=== PATIENT | female | born 1955 | race Caucasian/White ===

== ENCOUNTER 2023-02-21 23:45 | Emergency (ER) | payer OTHER, SELFPAY ==
--- NOTE | 2023-02-21 23:45 | RT.EKG_ITS ---
APPROVED REPORT Exam: Resting ECG Reason for Exam: epigastric pain Patient Location: E HR:55 bpm ECG Measurements Heart Rate 55 AXIS WV 181 P 60 QRSd 111 QRS -39 QT 465 T 40 QTc 443 Conclusion Sinus bradycardia...rate< 60 Left ventricular hypertrophy...multiple LVH criteria ST elevation, consider inferior injury...ST >0.08mV, II III aVF sinus rhythm, left axis, poor baseline due to artifact
[2023-02-21 23:49] VITALS: BP 160/76; PULSE 74; RESP 16; TEMP 36.5; O2SAT 99
[2023-02-22] VITALS (36 sets, daily range): BP systolic 110–155; BP diastolic 54–90; PULSE 44–77; RESP 10–36
--- NOTE | 2023-02-22 | DI.CT_ITS ---
Exam(s) CT ABDOMEN PELVIS W EXAM: CT ABDOMEN PELVIS W CLINICAL HISTORY: severe abdominal pain, hx of colostomy. TECHNIQUE: Imaging Protocol: Axial computed tomography images with coronal and sagittal reformatted images were created and reviewed CONTRAST MATERIAL: Intravenous: Omnipaque 350 Contrast volume:100 ml Oral: / no COMPARISON: CT CT_CHEST WO/CONTRAST from 11/17/[address]_CHEST WO/CONTRAST from 06/19/2017 FINDINGS: ABDOMEN: Lung Bases: Scarring and atelectasis right lung base. Small hiatal hernia. Liver: Normal density. No measurable mass. Gallbladder and biliary tract: Status post cholecystectomy. No radiodense calculus or biliary dilati on. Pancreas: Normal density, no abnormal calcifications or inflammatory process. Spleen: Normal. Kidneys: Normal size, contour and axis. No radiodense stones or obstructive uropathy. No suspicious m asses seen. Adrenal glands: No masses seen. Abdominal Aorta: Abdominal portion non-dilated. Soft tissues: Unremarkable. PELVIS: Bladder: No gross wall thickening. No calculi.No focal mass. Bowel: Left-sided colostomy containing multiple loops of small bowel as well as the expected portion of the colon. The loops of small bowel show wall thickening. There is some fluid within the parasto mal hernia.. The portion of colon extending to the ostomy shows wall thickening and pneumatosis as w ell as a large quantity of stool. Diverticulosis is noted in the descending colon. No evidence of d iverticulitis. Large focal mass of stool in the rectum. Appendix normal. Peritoneal cavity: Multiple free air bubble seen in the right mid and lower quadrant, in the area of inflamed colon. Bones: Within normal limits for age. Reproductive organs: Status post hysterectomy. Lymph nodes: Unremarkable. Impression: Left-sided colostomy and parastomal hernia contain abnormally thickened loops of small bowel is sugge sting incarceration. Inflammation of the afferent portion of the colon entering the hernia with pneu matosis and adjacent pneumoperitoneum. Findings are suspicious for ischemia and necrosis. RADIATION DOSE DELIVERED: 1,411.89mGy.cm Total DLP DATA REPOSITORY: All CT scans at this facility are submitted to the National Radiology Data Registry (NRDR) Dose Index Registry (DIR) with the [employer] (ACR). RADIATION OPTIMIZATION: All CT scans at this facility use at least one of these dose optimization te chniques: automated exposure control; mA and/or kV adjustment per patient size (includes targeted exa ms where dose is matched to clinical indication); or iterative reconstruction.
--- NOTE | 2023-02-22 00:06 | ED.GENADUL_ITS ---
Discharge Plan Disposition Patient Disposition: Transfer-Acute Inpatient Care Specific Acute Inpt Facility: [facility] Condition: Stable Discharge Details Chief Complaint: Nausea/Vomit/Diar Clinical Impression: Hernia with strangulation, Pneumoperitoneum Primary Care Provider: Sunny Horne ED Provider: Franko Christina Home Meds and New Rx's Prescriptions: No Action isosorbide mononitrate 20 mg Tablet 40 mg PO .1400 AND HS isosorbide mononitrate 60 mg Tablet Extended Release 24 Hr 60 mg PO DAILY famotidine 20 mg Tablet 20 mg PO BID pantoprazole 40 mg Tablet,Delayed Release (Dr/Ec) 40 mg PO BID levothyroxine [Synthroid] 112 mcg Tablet 112 mcg PO DAILY Medical Decision Making 67-year-old female history of perforated bowel status post colostomy, presents with abdominal pain nausea and vomiting over the last day. Afebrile nontoxic however appears uncomfortable. Nondistended soft abdomen, colostomy in place with stool in bag. No active vomiting however holding emesis basin close by. Consider bowel obstruction versus enteritis versus colitis versus gastritis lower suspicion for appendicitis or cholecystitis. Will obtain basic labs CT imaging, analgesia antiemetics fluids close reassessment 2: 13 patient persistently uncomfortable. Evidence of strangulated stomal hernia with pneumatosis and adjacent pneumoperitoneum. Have started patient on Zosyn, will continue with analgesia and maintenance fluid. I discussed case with Dr. Hatfield of general surgery given likely extensive surgical intervention needed and Dr. Hatfield currently recovering from shoulder injury, we will call [facility] and [facility] to discuss transfer for surgical intervention. 3: [address] surgeon [address] Timmons at [facility] who would like patient transferred for intervention, patient will go ED to ED has been accepted by emergency physician Dr. Beth. Patient stable patient and family counseled and amenable to transfer HPI General Date/Time Provider Initiated Documentation: 02/21/23 23:46 . HPI Narrative: 67-year-old female history of perforated bowel likely related to diverticulitis in 2011 status post colostomy, presents with abdominal pain nausea vomiting over the last day harder stool output into her ostomy which is abnormal for her. Related Data Home Medications Medication Instructions Recorded Confirmed famotidine 20 mg tablet 20 mg PO BID 02/22/23 02/22/23 isosorbide mononitrate 20 mg tablet 40 mg PO .1400 AND HS 02/22/23 02/22/23 isosorbide mononitrate 60 mg 60 mg PO DAILY 02/22/23 02/22/23 tablet,extended release 24 hr levothyroxine 112 mcg tablet 112 mcg PO DAILY 02/22/23 02/22/23 (Synthroid) pantoprazole 40 mg tablet,delayed 40 mg PO BID 02/22/23 02/22/23 release Allergies Allergy/AdvReac Type Severity Reaction Status Date / Time acetaminophen [From Percocet] Allergy Unverified 02/21/23 23:56 hydromorphone [From Dilaudid] Allergy Unverified 02/21/23 23:56 latex Allergy Unverified 02/21/23 23:57 methotrexate Allergy Unverified 02/21/23 23:57 morphine Allergy Unverified 02/21/23 23:56 oxycodone [From Percocet] Allergy Unverified 02/21/23 23:56 General Stated Complaint: Nausea/Vomit/Diar SAMIR: 3 Review of Systems Narrative: Review of Systems Constitutional: negative Eyes: negative ENT: negative Cardiovascular: negative Respiratory: negative Gastrointestinal: Abdominal pain, nausea : negative Musculoskeletal: negative Skin: negative Neurologic: negative Psych: negative PFSH All Active Problems (Updated 02/22/23 @ 03:39 by Franko Christina MD) Hernia with strangulation (Acute) Pneumoperitoneum (Acute) Social History Smoking/Tobacco Use Status: Never Smoking risk assessment performed?: Yes Alcohol Intake: current Alcohol Intake frequency: holidays/special occasions only Substance use type: does not use Exam Narrative Exam Narrative: Physical Examination General: alert, awake, cooperative, uncomfortable appearing HEENT: normocephalic, atraumatic; PERRL, EOM intact, conjunctiva normal; no nasal discharge; moist mucous membranes, oral and pharyngeal mucosa normal, tolerating secretions Neck: supple, trachea midline; full ROM Chest: normal to inspection Respiratory: normal respiratory effort, speaking in full sentences, clear to auscultation, no wheezing, rales or rhonchi Cardiac: regular rate, regular rhythm, S1S2 intact, no murmurs rubs or gallops GI: abdomen soft, non-tender, non-distended; no palpable mass or hepatosplenomegaly; colostomy in place with stool in bag Skin: no lesions, rashes or trauma appreciated Neuro: AAOx3, normal speech, moving all extremities Psych: Appropriate mood and affect Course Vital Signs Vital signs: Vital Signs Temperature 36.5 C 02/21/23 23:49 Pulse 74 02/21/23 23:49 Respiratory Rate 16 02/21/23 23:49 Blood Pressure 160/76 H 02/21/23 23:49 Pulse Oximetry 99 02/21/23 23:49 Temperature 36.5 C 02/21/23 23:49 Temperature Source Temporal Artery Scan 02/21/23 23:49 Pulse 74 02/21/23 23:49 Respiratory Rate 16 02/21/23 23:49 Respiratory Effort Normal 02/21/23 23:49 Blood Pressure 160/76 H 02/21/23 23:49 Blood Pressure Position Supine 02/21/23 23:49 Pulse Oximetry 99 02/21/23 23:49 Oxygen Delivery Method Room Air 02/21/23 23:49 Oxygen Flow Rate 0 02/21/23 23:49 Pain Level 10 02/21/23 23:49
[2023-02-22] MEDS: fentaNYL 100 MCG/2 ML VIAL 50 MCG IVP ×4 (00:10→04:06)
[2023-02-22] MEDS: Normal Saline 1,000 ML 1000 ML IV (00:10)
[2023-02-22 00:15] LABS: Abs Immature Grans 0.03 10^3/uL (0.0-0.06); Absolute Basophil Count 0.07 10^3/uL (0.0-0.2); Absolute Eosinophil Count 0.18 10^3/uL (0.0-0.7); Absolute Monocyte Count 0.63 10^3/uL (0.1-0.8); Basophils % 0.7; Eosinophils % 1.7; HCT 39.6 % (36.0-46.0); HGB 13.4 g/dL (11.2-15.7); Immature Grans % 0.3; Lymphocytes % 29.2; MCHC 33.8 % (32.0-36.0); MCV 89 fL (80-95); MPV 9.4 fL (8.0-11.0); Monocytes % 5.9; Neutrophils % 62.2; Platelet Count 325 10^3/uL (130-400); RBC 4.47 10^6/uL (3.93-5.22); RDW 12.2 % (11.7-14.6); RDW-SD 39.8 fL; WBC 10.61 10^3/uL (4.4-10.8)
[2023-02-22] MEDS: Metoclopramide 10 MG/2 ML VIAL IVP (00:15)
[2023-02-22] MEDS: Simethicone 80 MG CHEW 40 MG PO (00:25)
[2023-02-22 00:34] LABS: ALT 24 U/L (14-59); AST 20 U/L (15-37); Albumin 4.3 g/dL (3.4-5.0); Alkaline Phosphatase 125 U/L (46-116); BUN 25 mg/dL (7-18); Bilirubin, Total 1.1 mg/dL (0.2-1.0); Calcium 10.7 mg/dL (8.5-10.1); Chloride 103 mmol/L (98-107); Estimated GFR 62.52 (mL/min/1.73m2); Glucose 124 mg/dL (74-106); Potassium 3.2 mmol/L (3.5-5.1); Sodium 140 mmol/L (136-145); Total Protein 8.2 g/dL (6.4-8.2)
[2023-02-22] MEDS: Normal Saline - Diluent 50 ML VIAL IJ (00:56)
[2023-02-22] MEDS: Omnipaque 350 MG/ML 100 ML BTL IJ (00:56)
[2023-02-22 01:28] LABS: Bilirubin Negative (Negative); Blood Negative (Negative); Clarity Clear (Clear); Glucose Negative (Negative); Ketones 15 mg/dL (Negative); Leukocyte Esterase Negative (Negative); Nitrite Negative (Negative); Specific Gravity 1.015 (1.005-1.025); Urobilinogen 0.2 mg/dL (Up to 0.2); pH 5.5 (5-8)
--- NOTE | 2023-02-22 01:50 | DI.VRAD_ITS ---
Addendum created by Ervin Burns MD on 02/22/2023 2:13:29 AM EDT: THIS REPORT CONTAINS FINDINGS THAT MAY BE CRITICAL TO PATIENT CARE. The findings were verbally communicated via telephone conference with Franko Christina at 2:13 AM EDT on 02/22/2023. The findings were acknowledged and understood. Initial report created on 02/22/2023 1:50:08 AM EDT: PROCEDURE INFORMATION: Exam: CT Abdomen And Pelvis With Contrast Exam date and time: 02/22/2023 12:49 AM Age: 67 years old Clinical indication: Abdominal pain; Localized; Lower; Prior surgery; Surgery date: 6+ months; Surgery type: H/o colostomy. PT states many surgeries for diverticulitis; Additional info: Severe abdominal pain, HX of colostomy TECHNIQUE: Imaging protocol: Computed tomography of the abdomen and pelvis with contrast. Radiation optimization: All CT scans at this facility use at least one of these dose optimization techniques: automated exposure control; mA and/or kV adjustment per patient size (includes targeted exams where dose is matched to clinical indication); or iterative reconstruction. Contrast material: JERMAINE 350; Contrast volume: 100 ml; Contrast route: INTRAVENOUS (IV); COMPARISON: CT CHEST WO/CONTRAST 06/19/2017 4:46 PM FINDINGS: Lungs: Stable mild scarring and mild subsegmental atelectasis noted in the right lung base. Diaphragm: There is a small hiatal hernia. Liver: Normal. No mass. Gallbladder and bile ducts: Gallbladder is surgically absent. Pancreas: Normal. No ductal dilation. Spleen: Normal. No splenomegaly. Adrenal glands: Normal. No mass. Kidneys and ureters: Normal. No hydronephrosis. Stomach and bowel: There is a left lower quadrant colostomy with moderately large stomal hernia containing several thick-walled small bowel loops and small amount of fluid. The involved loop of colon exhibits pneumatosis as well as mild surrounding free air. Moderate-sized (5.6 cm) fecal mass noted in the rectum. Moderate fecal retention noted throughout the proximal colon. Appendix: No evidence of appendicitis. Intraperitoneal space: There is mild pneumoperitoneum in the left lower quadrant and pelvis. No significant free fluid or loculated fluid collections. Vasculature: Moderate atherosclerotic calcification noted in the aorta and iliac arteries. Lymph nodes: Unremarkable. No enlarged lymph nodes. Urinary bladder: Unremarkable as visualized. Reproductive: Uterus appears to be surgically absent. No adnexal abnormality. Bones/joints: Significant degenerative changes noted in the lumbosacral spine. Soft tissues: Unremarkable. IMPRESSION: Moderately large left lower quadrant stomal hernia containing several thick-walled small bowel loops and a small amount of fluid raising concern for incarcerated bowel. In addition, adjacent loop colon exhibits pneumatosis and small amount of adjacent pneumoperitoneum raising concern for bowel ischemia/necrosis secondary to incarceration. Dictated and Authenticated by: Ervin Burns MD. Ordering:SABINE Abdul MD
[2023-02-22] MEDS: Normal Saline 1,000 ML 125 ML IV (02:10)
[2023-02-22] MEDS: PIPERACILLIN/TAZO 4.5 GM in Normal Saline 100 ML IVPB (02:10)
[2023-02-22 02:24] LABS: Lactate 1.1 mmol/L (0.6-1.4)
--- NOTE | 2023-02-22 02:53 | NUR.NOTE ---
Nursing Note:Initil vial of Fentanyl that was pulled out by TIMUR OBANDO was used as a double dose vial. Second Vial drawn out. Currently one dose has been given from vial. Will waste if another dose isnt given from the same vial.
== END 2023-02-22 04:08 | disposition short-term general hospital (02) ==
PROVIDERS: Emergency Provider Emergency Medicine; PCP Internal Medicine
DX: K46.0 Unspecified abdominal hernia with obstruction, without gangrene (principal); K66.8 Other specified disorders of peritoneum; Z93.3 Colostomy status
CPT/HCPCS: 36415; 80053; 93005; 96361; 96365; 96375; 96376; 99285; 74177; 81003; 83605; 85025; 93010; J2543; J2765; J3010; J3490

== ENCOUNTER 2023-04-05 09:46 | Emergency (ER) | payer OTHER, SELFPAY ==
[2023-04-05] VITALS (32 sets, daily range): BP systolic 129–175; BP diastolic 76–105; PULSE 63–79; RESP 15; TEMP 36.6; O2SAT 86–99
--- NOTE | 2023-04-05 10:15 | RT.EKG_ITS ---
APPROVED REPORT This report is currently processing and has not been officially signed by CARLOS FERRARO.. [facility] TIME OF PERMANENT APPROVAL IS 04/20/2023 16:18 Exam: Resting ECG Reason for Exam: dizziness Patient Location: E HR:67 bpm ECG Measurements Heart Rate 67 AXIS OK 152 P 21 QRSd 103 QRS -37 QT 427 T 40 QTc 450 Conclusion Sinus rhythm...normal P axis, V-rate 60- 99 Left ventricular hypertrophy...multiple LVH criteria
[2023-04-05 10:39] LABS: Abs Immature Grans 0.01 10^3/uL (0.0-0.06); Absolute Basophil Count 0.04 10^3/uL (0.0-0.2); Absolute Lymphocyte Count 1.94 10^3/uL (1.2-3.4); Absolute Neutrophil Count 1.63 10^3/uL (1.2-6.7); Basophils % 0.9; Eosinophils % 4.7; HCT 37.7 % (36.0-46.0); HGB 12.1 g/dL (11.2-15.7); Immature Grans % 0.2; MCH 30.3 pg (27.0-33.0); MCHC 32.1 % (32.0-36.0); MCV 95 fL (80-95); MPV 9.1 fL (8.0-11.0); Monocytes % 9.5; Neutrophils % 38.7; Platelet Count 304 10^3/uL (130-400); RBC 3.99 10^6/uL (3.93-5.22); RDW 14.1 % (11.7-14.6); RDW-SD 49.1 fL; WBC 4.22 10^3/uL (4.4-10.8)
[2023-04-05] MEDS: diazePAM 10 MG/2 ML SYR 2.5 MG IVP (10:44)
[2023-04-05] MEDS: Lactated Ringers 1,000 ML 1000 ML IV (10:45)
[2023-04-05 10:54] LABS: Magnesium 1.9 mg/dL (1.8-2.4)
[2023-04-05 11:01] LABS: ALT 23 U/L (14-59); AST 18 U/L (15-37); Albumin 4.1 g/dL (3.4-5.0); Alkaline Phosphatase 142 U/L (46-116); Anion Gap 11.2 mmol/L (3-11); BUN 14 mg/dL (7-18); Bilirubin, Total 0.9 mg/dL (0.2-1.0); CO2 25.8 mmol/L (21.0-32.0); CREATININE 0.9 mg/dL (0.55-1.02); Calcium 9.6 mg/dL (8.5-10.1); Chloride 105 mmol/L (98-107); Estimated GFR 70.95 (mL/min/1.73m2); Glucose 111 mg/dL (74-106); Potassium 3.6 mmol/L (3.5-5.1); Sodium 142 mmol/L (136-145); Total Protein 8.6 g/dL (6.4-8.2); Troponin I < 50 ng/L (<or=60)
[2023-04-05] MEDS: Normal Saline - Diluent 50 ML VIAL IJ (11:23)
[2023-04-05] MEDS: Normal Saline Flush 10 ML SYR IVP (11:26)
[2023-04-05] MEDS: Omnipaque 350 MG/ML 500 ML BTL-Imaging package IJ (11:27)
--- NOTE | 2023-04-05 11:46 | DI.CT_ITS ---
Exam(s) CT BRAIN NECK CTA EXAM: CT BRAIN NECK CTA CLINICAL HISTORY: dilated pupil left, dizziness, headache. TECHNIQUE: Imaging Protocol: Axial CT angiography was performed with multi-slice acquisition and mu lti-planar and/or 3D reconstructions. CONTRAST MATERIAL: Intravenous: Omnipaque 350 Contrast volume:structured data in ml COMPARISON: CT CT ABDOMEN PELVIS W from 02/22/2023 FINDINGS: CTA Neck W: Aortic arch anatomy: The aortic arch anatomy is conventional and there is no significant stenosis at the origin of the great vessels off of the aortic arch. No intimal flap evident. Anterior circulation: Both common carotid arteries ascend with normal luminal diameters. At the level the carotid bulbs there is mild calcified and noncalcified plaque on the right side note d but without significant stenosis on the right side. Lesser amount of plaque noted on the left side , also without significant stenosis. The internal carotid arteries above this level are patent in th e upper neck and skull base. Posterior circulation: Both vertebral arteries originate in conventional fashion off of the subclavian arteries and there is no obvious stenosis at the origin of the vertebral arteries. Both vertebral arteries exhibit normal luminal diameters within the foramen transversarium. Both vertebral arteries contribute to the formation of the basilar artery at the skull base. CTA Brain W: Anterior circulation: Both internal carotid arteries are patent in the skull base-carotid canals as well as within the cave rnous sinuses. The supraclinoid aspects of the ICAs are patent. Both A1 segments are patent as are the anterior cer ebral arteries and there is no evidence of aneurysm at the level of the anterior communicating artery . Both middle cerebral arteries are patent with no evidence of significant stenosis nor intraluminal th rombus. There also no aneurysms of these vessels. Posterior circulation: The basilar artery ascends in the midline. Distally it gives off patent bilateral superior cerebella r arteries. Above this level the basilar artery terminates as patent bilateral posterior cerebral arteries. There is no evidence of aneurysm at the tip of the basilar artery nor elsewhere in the [id number] is. CT BRAIN: There is no evidence of intracranial hemorrhage, mass effect, or shift of midline structures. There are no extra-axial fluid collections. Ventricles are not enlarged or shifted. There are no ring enh ancing lesions in the brain and no abnormal meningeal enhancement. IMPRESSION: 1. Patent carotid arteries in the neck. Only mild plaque but no hemodynamically significant stenosis at the carotid bifurcations and proximal ICAs in the neck.. 2. Patent vertebral arteries. No evidence of intraluminal thrombus nor dissection. 3. Patent intracranial arteries. 4. No ring enhancing lesions in the brain is is no abnormal meningeal enhancement. No evidence of in tracranial hemorrhage. 5. If clinically indicated follow-up MRI can be performed. Called by myself to ER provider. RADIATION DOSE DELIVERED: 2,062.71mGy.cm Total DLP DATA REPOSITORY: All CT scans at this facility are submitted to the National Radiology Data Registry (NRDR) Dose Index Registry (DIR) with the [employer] (ACR). RADIATION OPTIMIZATION: All CT scans at this facility use at least one of these dose optimization te chniques: automated exposure control; mA and/or kV adjustment per patient size (includes targeted exa ms where dose is matched to clinical indication); or iterative reconstruction.
--- NOTE | 2023-04-05 12:00 | DI.MRI_ITS ---
Exam(s) MR BRAIN WO EXAM: MR BRAIN WO CLINICAL HISTORY: dizziness, vision change TECHNIQUE: Multiplanar multisequence MRI of the brain was performed. COMPARISON: CT CT BRAIN NECK CTA from 04/05/2023 FINDINGS: CEREBRAL PARENCHYMA: There is no evidence of intracranial hemorrhage, mass effect, or shift of midline structures. There are no extra-axial fluid collections. Ventricles are not enlarged or shifted. There is no significant focal signal abnormality in the cerebellar hemispheres nor within the talha, m idbrain, and thalami. There is some patchy bilateral periventricular FLAIR bright signal abnormality consistent with chroni c small vessel ischemic changes. No associated hemorrhage or surrounding edema nor restricted diffus ion. There is no significant focal signal abnormality evident on diffusion imaging to suggest acute ischem ic event. PITUITARY GLAND: No mass nor parasellar abnormality. No obvious abnormality in the cavernous sinuses. FLOW VOIDS: The expected flow void are noted. No evidence of obvious aneurysm nor obvious vascular ma lformation. PARANASAL SINUSES: The visualized paranasal sinuses appear unremarkable. No obvious finding ORBITS: No obvious findings. IMPRESSION: There is bilateral periventricular patchy signal abnormality consistent with probable chronic small v essel disease. No associated hemorrhage or surrounding edema and no restricted diffusion to suggest acute ischemic event. DATA REPOSITORY:
[2023-04-05] MEDS: Meclizine 25 MG TAB PO ×2 (13:14→16:41)
[2023-04-05 14:20] LABS: Bilirubin Negative (Negative); Blood Negative (Negative); Clarity Clear (Clear); Glucose Negative (Negative); Ketones Negative (Negative); Leukocyte Esterase Negative (Negative); Nitrite Negative (Negative); Specific Gravity 1.015 (1.005-1.025)
--- NOTE | 2023-04-05 14:31 | ED.GENADUL_ITS ---
Discharge Plan Disposition Patient Disposition: Home Discharge Details Clinical Impression: Dizziness, Anisocoria Primary Care Provider: Snuny Horne ED Provider: Effie Still Home Meds and New Rx's Prescriptions: New meclizine 25 mg tablet 25 mg PO DAILY PRNQty: 10 0RF Continued aspirin 325 mg Tablet 325 mg PO DAILY isosorbide mononitrate 20 mg Tablet 40 mg PO .1400 AND HS isosorbide mononitrate 60 mg Tablet Extended Release 24 Hr 60 mg PO DAILY famotidine 20 mg Tablet 20 mg PO BID pantoprazole 40 mg Tablet,Delayed Release (Dr/Ec) 40 mg PO BID levothyroxine [Synthroid] 112 mcg Tablet 112 mcg PO DAILY Discharge Instructions Instructions: Dizziness (ED) Additional Instructions: Take meclizine as needed for dizziness, please follow-up with [facility] in [facility] for evaluation of your vision utube rene maneuver as this may help with your dizziness Keep your self hydrated Return earlier should you have new or worsening complaints Please follow-up with your primary care physician Referrals: Sunny Horne [Primary Care Provider] - Discharge Data Discharge Date/Time-TO BE ENTERED AT DEPARTURE: 04/05/23 16:51 Medical Decision Making 67-year-old female presents with suspected BPPV CTA head and neck was ordered and negative for acute abnormality MRI does not show evidence of acute abnormality per radiology interpretation and my review Case was discussed with Dr. Damon, radiologist Diagnostic labs do not show significant acute abnormality, specifically 2 negative troponins and negative EKG for acute abnormality Patient feels marked improvement after meclizine, Valium did not offer much assistance with her symptoms At this time her exam is reassuring, she does have anisocoria, she states that she noticed this today but her pupils are reactive and her pupils are intraocular pressure is 21 in the affected eye and 22 in the unaffected eye, I suspect this is her baseline, she is not complaining intermittent complaints Her visual acuity is 20/25 in the right eye, 20/25 in the left eye, and 2024 bilaterally She will be referred to [facility] for outpatient assessment She is given meclizine for home Return precautions were reviewed and patient expressed understanding, her neurological exam is otherwise nonfocal Medical Records Medical records reviewed: Yes I reviewed the patient's medical records. Lab Data Lab results reviewed: Yes I reviewed the patient's lab results. HPI General Date/Time Provider Initiated Documentation: 04/05/23 09:58 . HPI Narrative: This 67-year-old female presents with dizziness with, she describes it as spinning sensation with headache. Denies any chest pain or shortness of breath. Denies any weakness. States she had similar symptoms in the past with a neuro and quite so persistent. Status post colostomy placement. Denies any strength or sensation change. States her pupils looked abnormal when she examined herself in the mirror today, has not noticed this before. Her visual acuity was what was consistent on all on the chart. Related Data Home Medications Medication Instructions Recorded Confirmed famotidine 20 mg tablet 20 mg PO BID 02/22/23 04/05/23 isosorbide mononitrate 20 mg tablet 40 mg PO .1400 AND HS 02/22/23 04/05/23 isosorbide mononitrate 60 mg 60 mg PO DAILY 02/22/23 04/05/23 tablet,extended release 24 hr levothyroxine 112 mcg tablet 112 mcg PO DAILY 02/22/23 04/05/23 (Synthroid) pantoprazole 40 mg tablet,delayed 40 mg PO BID 02/22/23 04/05/23 release aspirin 325 mg tablet 325 mg PO DAILY 04/05/23 04/05/23 meclizine 25 mg tablet 25 mg PO DAILY PRN #10 tabs 04/05/23 Previous Rx's Medication Instructions Recorded meclizine 25 mg tablet 25 mg PO DAILY PRN #10 tabs 04/05/23 Allergies Allergy/AdvReac Type Severity Reaction Status Date / Time acetaminophen [From Percocet] Allergy Unverified 04/05/23 09:58 hydromorphone [From Dilaudid] Allergy Unverified 04/05/23 09:58 latex Allergy Unverified 04/05/23 09:58 methotrexate Allergy Unverified 04/05/23 09:58 morphine Allergy Unverified 04/05/23 09:58 oxycodone [From Percocet] Allergy Unverified 04/05/23 09:58 General Stated Complaint: GenMedical SAMIR: 3 PFSH All Active Problems (Updated 04/05/23 @ 15:17 by MELANIE Negron) Dizziness (Acute) Anisocoria (Acute) Social History Smoking/Tobacco Use Status: Never Smoking risk assessment performed?: Yes Alcohol Intake: current Alcohol Intake frequency: holidays/special occasions only Drug use: Never Substance use type: does not use Do you feel safe at home: Yes Do you feel safe in your relationship?: Yes Exam Const General: cooperative, comfortable, no acute distress and well developed Orientation: alert and oriented x3 HENMT Head: normal to inspection Other: Uvula midline Eyes Pupils: PERRL EOM: nystagmus Other: Anisocoria noted, left pupil approximately 2 mm larger than right, extraocular muscles intact, pupils reactive to light Resp Effort & Inspection: normal respiratory effort Cardio Rate: regular rate Rhythm: regular rhythm GI Inspection: normal to inspection Neuro General: patient alert and patient oriented x3 Cranial Nerves: CN's II-XI intact bilaterally, tongue midline and nystagmus Cognition: normal cognition Speech: speech normal Other: Right beating horizontal nystagmus Negative [id number]-ryqa-[id number], negative heel sandoval, negative pronator drift Ambulatory with steady gait Course Vital Signs Vital signs: Vital Signs Temperature 36.6 C 04/05/23 09:53 Pulse 78 04/05/23 09:53 Respiratory Rate 15 04/05/23 09:53 Blood Pressure 175/91 H 04/05/23 09:53 Pulse Oximetry 98 04/05/23 09:53 Temperature 36.6 C 04/05/23 09:53 Temperature Source Oral 04/05/23 09:53 Pulse 68 04/05/23 13:46 Respiratory Rate 15 04/05/23 10:36 Respiratory Effort Normal, Non-Labored 04/05/23 10:36 Respiratory Depth Normal 04/05/23 10:36 Respiratory Pattern Normal 04/05/23 10:36 Blood Pressure 133/81 04/05/23 13:46 Blood Pressure Mean 94 04/05/23 13:46 Blood Pressure Position Sitting 04/05/23 09:53 Pulse Oximetry 98 04/05/23 13:46 Oxygen Delivery Method Room Air 04/05/23 09:53 Oxygen Flow Rate 0 04/05/23 09:53 Pain Level 0 04/05/23 09:53 Lab/Test Results Lab/Test Results: Laboratory Tests Range/Units 04/05/23 04/05/23 04/05/23 10:30 10:30 10:30 WBC (4.4-10.8) 10^3/uL 4.22 L RBC (3.93-5.22) 10^6/uL 3.99 Hgb (11.2-15.7) g/dL 12.1 Hct (36.0-46.0) % 37.7 MCV (80-95) fL 95 MCH (27.0-33.0) pg 30.3 MCHC (32.0-36.0) % 32.1 RDW (11.7-14.6) % 14.1 Plt Count (130-400) 10^3/uL 304 MPV (8.0-11.0) fL 9.1 Immature Gran % 0.2 Neutrophils % 38.7 Lymphocytes % 46.0 Monocytes % 9.5 Eosinophils % 4.7 Basophils % 0.9 Nucleated RBC % (0.0-0.3) % 0.0 Absolute Neutrophils (1.2-6.7) 10^3/uL 1.63 Absolute Lymphocytes (1.2-3.4) 10^3/uL 1.94 Absolute Monocytes (0.1-0.8) 10^3/uL 0.40 Absolute Eosinophils (0.0-0.7) 10^3/uL 0.20 Absolute Basophils (0.0-0.2) 10^3/uL 0.04 Sodium (136-145) mmol/L 142 Potassium (3.5-5.1) mmol/L 3.6 Chloride (98-107) mmol/L 105 Carbon Dioxide (21.0-32.0) mmol/L 25.8 Anion Gap (3-11) mmol/L 11.2 H BUN (7-18) mg/dL 14 Creatinine (0.55-1.02) mg/dL 0.9 Est GFR (CKD-EPI 2020) (mL/min/1.73m2) 70.95 Glucose (74-106) mg/dL 111 H Calcium (8.5-10.1) mg/dL 9.6 Magnesium (1.8-2.4) mg/dL 1.9 Total Bilirubin (0.2-1.0) mg/dL 0.9 AST (15-37) U/L 18 ALT (14-59) U/L 23 Alkaline Phosphatase (46-116) U/L 142 H Troponin I (<or=60) ng/L < 50 Total Protein (6.4-8.2) g/dL 8.6 H Albumin (3.4-5.0) g/dL 4.1 Urine Color (Yellow) Urine Clarity (Clear) Urine pH (5-8) Ur Specific [place] (1.005-1.025) Urine Protein (Negative) mg/dL Urine Ketones (Negative) mg/dL Urine Blood (Negative) Urine Nitrite (Negative) Urine Bilirubin (Negative) Urine Urobilinogen (Up to 0.2) mg/dL Ur Leukocyte Esterase (Negative) Urine Glucose (Negative) mg/dL Range/Units 04/05/23 14:15 WBC (4.4-10.8) 10^3/uL RBC (3.93-5.22) 10^6/uL Hgb (11.2-15.7) g/dL Hct (36.0-46.0) % MCV (80-95) fL MCH (27.0-33.0) pg MCHC (32.0-36.0) % RDW (11.7-14.6) % Plt Count (130-400) 10^3/uL MPV (8.0-11.0) fL Immature Gran % Neutrophils % Lymphocytes % Monocytes % Eosinophils % Basophils % Nucleated RBC % (0.0-0.3) % Absolute Neutrophils (1.2-6.7) 10^3/uL Absolute Lymphocytes (1.2-3.4) 10^3/uL Absolute Monocytes (0.1-0.8) 10^3/uL Absolute Eosinophils (0.0-0.7) 10^3/uL Absolute Basophils (0.0-0.2) 10^3/uL Sodium (136-145) mmol/L Potassium (3.5-5.1) mmol/L Chloride (98-107) mmol/L Carbon Dioxide (21.0-32.0) mmol/L Anion Gap (3-11) mmol/L BUN (7-18) mg/dL Creatinine (0.55-1.02) mg/dL Est GFR (CKD-EPI 2020) (mL/min/1.73m2) Glucose (74-106) mg/dL Calcium (8.5-10.1) mg/dL Magnesium (1.8-2.4) mg/dL Total Bilirubin (0.2-1.0) mg/dL AST (15-37) U/L ALT (14-59) U/L Alkaline Phosphatase (46-116) U/L Troponin I (<or=60) ng/L Total Protein (6.4-8.2) g/dL Albumin (3.4-5.0) g/dL Urine Color (Yellow) Yellow Urine Clarity (Clear) Clear Urine pH (5-8) 7.0 Ur Specific [place] (1.005-1.025) 1.015 Urine Protein (Negative) mg/dL Negative Urine Ketones (Negative) mg/dL Negative Urine Blood (Negative) Negative Urine Nitrite (Negative) Negative Urine Bilirubin (Negative) Negative Urine Urobilinogen (Up to 0.2) mg/dL 1.0 H Ur Leukocyte Esterase (Negative) Negative Urine Glucose (Negative) mg/dL Negative
[2023-04-05 14:40] LABS: Troponin I < 50 ng/L (<or=60)
--- NOTE | 2023-04-05 15:15 | NUR.NOTE ---
Nursing Note: PT needs opthimology follow up Saturday. Susana, ED
== END 2023-04-05 16:51 | disposition home or self-care (01) ==
PROVIDERS: Emergency Provider Physician Assistant; PCP Internal Medicine
DX: R42 Dizziness and giddiness (principal); H57.02 Anisocoria
CPT/HCPCS: 36415; 70496; 70498; 80053; 93005; 96361; 96374; 99285; 70551; 81003; 83735; 84484; 85025; 93010; 99284; J3360

== ENCOUNTER 2023-05-08 02:17 | Outpatient (CLI) | payer OTHER, SELFPAY ==
--- NOTE | 2023-05-08 13:00 | DI.MAMMO_ITS ---
Exam(s) MAMMO SCREENING EXAM: MAMMO SCREENING CLINICAL HISTORY: SCREENING TECHNIQUE: Bilateral full field digital CC and MLO mammographic images were obtained with 3D tomosyn thesis and utilizing computer aided detection (CAD). COMPARISON: Available for comparison. FINDINGS: Masses/Architectural Distortion: None seen. Microcalcifications: No suspicious pleomorphic-type are seen. Skin Thickening/Nipple Retraction: None. IMPRESSION: 1. No significant interval change with no specific features of malignancy noted. 2. Unless there is more urgent need, screening mammography is recommended, as per [employer] [place] guidelines. BI-RADS Category 1 - Negative Breast Density - Category B - Scattered areas of fibroglandular density Breast density category C or D implies that the patient has dense breast tissue. Dense breast tissue is very common and is not abnormal but dense breast tissue can make it harder to find cancer on a ma mmogram. Also, dense breast tissue may increase their breast cancer risk. This information about the result of the mammogram report was provided to the patient to raise their awareness. Use this report when you speak with the patient about their risks for breast cancer, which includes their family hist ory. At that time, you may recommend for more screening tests (Ultrasound or MRI) as they might be us eful based on their risk. A negative radiographic report should not delay biopsy if a dominant or clinically suspicious mass is present. Up to ten percent of cancers are not identified on mammography. A negative report may reinforce clinical impression. Adenosis and dense breasts may obscure an underlying neoplasm. False positive reports average 6 to 10%. Patient will receive a letter notifying them of these results.
== END 2023-05-08 02:37 ==
LOC: DI 02:17
PROVIDERS: PCP Internal Medicine; Visit Provider Internal Medicine
DX: Z12.31 Encounter for screening mammogram for malignant neoplasm of breast (principal)
CPT/HCPCS: 77063; 77067

== ENCOUNTER 2023-05-17 01:51 | Outpatient (CLI) | payer OTHER, SELFPAY ==
[2023-05-17 08:05] LABS: ESR 20 mm/hr (0-30)
[2023-05-17 08:06] LABS: Abs Immature Grans 0.02 10^3/uL (0.0-0.06); Absolute Basophil Count 0.05 10^3/uL (0.0-0.2); Absolute Eosinophil Count 0.23 10^3/uL (0.0-0.7); Absolute Lymphocyte Count 2.99 10^3/uL (1.2-3.4); Absolute Monocyte Count 0.68 10^3/uL (0.1-0.8); Absolute Neutrophil Count 3.38 10^3/uL (1.2-6.7); Basophils % 0.7; Eosinophils % 3.1; HCT 39.5 % (36.0-46.0); Immature Grans % 0.3; Lymphocytes % 40.7; MCHC 32.9 % (32.0-36.0); MCV 91 fL (80-95); Monocytes % 9.3; Neutrophils % 45.9; Platelet Count 318 10^3/uL (130-400); RBC 4.34 10^6/uL (3.93-5.22); RDW 12.6 % (11.7-14.6); RDW-SD 41.8 fL; WBC 7.35 10^3/uL (4.4-10.8)
[2023-05-17 08:41] LABS: Hemoglobin A1C 5.9 % (<5.7)
[2023-05-17 09:09] LABS: ALT 22 U/L (14-59); AST 19 U/L (15-37); Albumin 4.1 g/dL (3.4-5.0); Alkaline Phosphatase 116 U/L (46-116); Anion Gap 12.3 mmol/L (3-11); BUN 37 mg/dL (7-18); Bilirubin, Total 0.8 mg/dL (0.2-1.0); CO2 26.7 mmol/L (21.0-32.0); CREATININE 1.1 mg/dL (0.55-1.02); Calcium 10.8 mg/dL (8.5-10.1); Calculated LDL 69 mg/dL (<100); Chloride 103 mmol/L (98-107); Cholesterol 167 mg/dL (<200); Estimated GFR 55.76 (mL/min/1.73m2); Glucose 113 mg/dL (74-106); HDL Cholesterol 66 mg/dL (40-60); Potassium 3.4 mmol/L (3.5-5.1); Sodium 142 mmol/L (136-145); TSH (W/Ref FT4) 0.47 uIU/mL (0.36-3.74); Total Protein 8.3 g/dL (6.4-8.2); Triglyceride 163 mg/dL (<150)
[2023-05-17 09:18] LABS: C-Reactive Protein 0.09 mg/dL (0.0-0.3)
== END 2023-05-17 01:52 | disposition home or self-care (01) ==
LOC: LBO 01:51
PROVIDERS: PCP Internal Medicine; Visit Provider Internal Medicine Rheumatology
DX: M34.81 Systemic sclerosis with lung involvement (principal); E06.3 Autoimmune thyroiditis; R73.03 Prediabetes; E78.5 Hyperlipidemia, unspecified
CPT/HCPCS: 36415; 80053; 80061; 85652; 83036; 84443; 85025; 86140

== ENCOUNTER 2024-03-11 05:50 | Outpatient (CLI) | payer OTHER, SELFPAY ==
--- NOTE | 2024-03-11 10:16 | W.NUTRFU ---
Date of service: 03/11/24 Time of Service: 09:00 Nutrition Note NOTE: Sarina came in today after referral from provider indicating it for nutrition advice and weight loss. There was a process change here and referral was found from November 2023 and Sarina still interested in coming in. Sarina agrees that she is definitely interested in weight loss but has a significant challenge with her nutrition and food choices due to history of intolerance and struggles with gut issues. 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 She also suffers from gastroparesis, GERD, CVD, interstitial lung disease OA of hips and depression. Anthropometrics per referral 12/05/23: 62.5 93.1kg with a BMI of 36.8kg/m2 She takes a MVI tabalet, selenium, 4,000-6,000IU vitamin D2 (more in winter months), a Bcomplex, and a supplement she says is for hair/skin/nails (?biotin) estimated energy needs: 1718kcals (REEx1.2AF), 86-128g protein (20-30% of kcals) suggested she aim for ~100g on average. She has a restrictive diet due to intolerance as well as not wanting to eat a lot of refined/low fiber starches because she is trying to lose weight. She dislikes straight milk but tolerates cottage/ricotta cheese, activia yogurt, eggs and cheddar cheese. She'll eat saltines, peanut butter, faroese muffin, applesauce, canned veggies. Allows herself 1 coffee per day. Avoids nuts and seeds, beans (last tried and had diarrhea for days), raw veggies and fruit. She is not big on meat but will eat occasionally. Pt c/o brittle nails - on inspection some vertical ridges noted and brittle nails apparent - brittle nails can have many causes but selenium toxicity is one of them so cautioned to avoid >400mcg selenium per day. Suggested considering working some of the following into her diet: -banatrol prebiotic to help with diarrhea. encouraged 1/2 pkt per day and see how tolerated before increasing gradually to 1-3pkts daily if she finds it helps manage diarrhea. -Can consider probiotic like culturelle in addition to her yogurt for more greater intake of CFU's -Can consider trial of l-glutamine at 2-5g per day to benefit gut lumen -can consider trial of OTC digestive enzyme prior to eating to help with digestion -also suggested capsule or powder MVI instead of compressed tablet types for better absorption -can also experiment with marshmallow root tea, hellen to help sooth gut General recommendations to chew food well and not to rule out purees and liquified foods for easy digestion - she might find she will tolerate blenderized versions of some foods more than eating whole. Suggested low residue diet with a baseline menu of foods she knows she will tolerate and then branching out from there slowly to increase fiber. Encouraged anti-inflammatory choices whenever possible and reviewed essentials of this style of eating. Steered towards limited menus at first but cycling around 2-3 menus for each meal for awhile and then creating more menus after establishing toleration. Reviewed some examples and pt interested in working via emails to construct more menus. Encouraged to track and limit added sugars to <30grams most days and use the dairy she tolerates with some meats and other protein sources but might want to consider whey protein or collagen protein to help supplement. Will be communicating via email to help pt troubleshoot concerns and food intolerances. No follow appt planned at this time With current frequent diarrhea unsure if a prokinetic medication would be helpful, or considering if pt is a good candidate for gastric pacemaker consider colostomy and gastroparesis. Time Spent in Nutritional Counseling and Treatment: 60 minutes
== END 2024-03-11 05:51 | disposition home or self-care (01) ==
PROVIDERS: PCP Internal Medicine; Visit Provider Dietitian, Registered
DX: Z71.3 Dietary counseling and surveillance (principal)
CPT/HCPCS: 00123; 97802

== ENCOUNTER 2025-03-16 08:13 | Inpatient (IN) | payer MEDICARE, SELFPAY ==
[2025-03-16] VITALS (47 sets, daily range): BP systolic 98–112; BP diastolic 53–88; PULSE 62–94; RESP 16–18; TEMP 36–36.6; O2SAT 69–99
--- NOTE | 2025-03-16 08:30 | RT.EKG_ITS ---
APPROVED REPORT Exam: Resting ECG Reason for Exam: dizziness Patient Location: E HR:82 bpm ECG Measurements Heart Rate 82 AXIS SC 147 P 39 QRSd 118 QRS -55 QT 397 T 104 QTc 465 Conclusion Sinus rhythm...normal P axis, V-rate 60- 99 Probable left atrial enlargement...P >50mS, <-0.10mV V1 LVH with IVCD, LAD and secondary repol abnrm...multi-criteria, wQRSd, abnr ST-T No Occlusion CT
[2025-03-16 09:08] LABS: Lactate 1.5 mmol/L (<or=2.0)
[2025-03-16 09:09] LABS: Abs Immature Grans 0.02 10^3/uL (0.0-0.06); Absolute Basophil Count 0.03 10^3/uL (0.0-0.2); Absolute Eosinophil Count 0.02 10^3/uL (0.0-0.7); Basophils % 0.5 %; Eosinophils % 0.3 %; HCT 50.5 % (36.0-46.0); HGB 17.6 g/dL (11.2-15.7); Immature Grans % 0.3 %; MCH 30.8 pg (27.0-33.0); MCHC 34.9 % (32.0-36.0); MCV 88 fL (80-95); MPV 10.1 fL (8.0-11.0); Platelet Count 312 10^3/uL (130-400); RBC 5.71 10^6/uL (3.93-5.22); RDW 11.8 % (11.7-14.6)
[2025-03-16] MEDS: Lactated Ringers 1,000 ML 1000 ML IV (09:09)
[2025-03-16] MEDS: Ondansetron 4 MG/2 ML VIAL IVP ×2 (09:09→21:18)
[2025-03-16 09:26] LABS: ALT 48 U/L (14-59); AST 38 U/L (15-37); Albumin 4.9 g/dL (3.4-5.0); Alkaline Phosphatase 139 U/L (46-116); Anion Gap 21.4 mmol/L (3-11); CO2 17.6 mmol/L (21.0-32.0); Calcium 10.7 mg/dL (8.5-10.1); Chloride 96 mmol/L (98-107); Glucose 131 mg/dL (74-106); Lipase 63 U/L (<78); Magnesium 1.9 mg/dL (1.8-2.4); Potassium 3.2 mmol/L (3.5-5.1); Sodium 135 mmol/L (136-145); Total Protein 9.3 g/dL (6.4-8.2)
[2025-03-16 09:32] LABS: Absolute Lymphocyte Count 2.54 10^3/uL (1.2-3.4); Absolute Monocyte Count 0.52 10^3/uL (0.1-0.8); Absolute Neutrophil Count 3.45 10^3/uL (1.2-6.7); Atypical Lymphocytes % 3 %
[2025-03-16 09:33] LABS: BUN 101 mg/dL (7-18); Diff Comment Manual Differential; RBC Morphology Normal
[2025-03-16 09:46] LABS: COVID-19 PCR Negative (Negative); Influenza A PCR Negative (Negative); Influenza B PCR Negative (Negative); RSV PCR Negative (Negative)
[2025-03-16 09:47] LABS: Source Nasopharynx
[2025-03-16 10:21] LABS: EPI 027-NAP1-B1 PRESUMPTIVE NEGATIVE
[2025-03-16 10:25] LABS: C Diff PCR POSITIVE (Negative)
--- NOTE | 2025-03-16 10:26 | ED.GENADUL_ITS ---
Discharge Plan Disposition Patient Disposition: Admit to [facility] Condition: Stable Discharge Details Clinical Impression: Clostridium difficile infection, Acute kidney injury Admit Date/Time: 03/16/25 11:24 Admit Provider: Antione Pablo Attending Provider: Antione Pablo Primary Care Provider: Sunny Horne ED Provider: Honorio Skaggs HPI General Date/Time Provider Initiated Documentation: 03/16/25 08:31 . HPI Narrative: 69 year-old female presents to ED today by POV/ambulating with a chief complaint of nausea/vomiting, diarrhea, abdominal pain with onset for the past 2 weeks. States completely liquid still in her ostomy bag every couple hours. Quality described as generalized abdominal pain, nausea/vomiting, no radiation to overt fevers, endorses chronic SOB, denies chest pain, denies black/bloody ostomy output, endorses that she is urinating normally. Severity is described as severe. Palliating factors include nothing specific. Provoking factors include nothing specific. Events leading up to the incident/Associated Symptoms: Patient denies antibiotic exposure in the last month. Patient not anticoagulated. Related Data Home Medications ?Medication ?Instructions ?Recorded ?Confirmed famotidine 20 mg tablet 20 mg PO BID 02/22/23 03/16/25 isosorbide mononitrate 60 mg 60 mg PO DAILY 02/22/23 03/16/25 tablet,extended release 24 hr levothyroxine 112 mcg tablet 112 mcg PO DAILY 02/22/23 03/16/25 (Synthroid) pantoprazole 40 mg tablet,delayed 40 mg PO BID 02/22/23 03/16/25 release aspirin 325 mg tablet 325 mg PO DAILY 04/05/23 03/16/25 atorvastatin 40 mg tablet 40 mg PO DAILY 03/16/25 03/16/25 isosorbide mononitrate 10 mg tablet 10 mg PO BID PRN 03/16/25 03/16/25 isosorbide mononitrate 30 mg 30 mg PO QAM 03/16/25 03/16/25 tablet,extended release 24 hr spironolactone 25 mg tablet 25 mg PO DAILY 03/16/25 03/16/25 Allergies Allergy/AdvReac Type Severity Reaction Status Date / Time acetaminophen (From Percocet) Allergy Other (See Unverified 03/16/25 08:31 Comment) hydromorphone (From Dilaudid) Allergy Other (See Unverified 03/16/25 08:31 Comment) latex Allergy Other (See Unverified 03/16/25 08:31 Comment) methotrexate Allergy Other (See Unverified 03/16/25 08:31 Comment) morphine Allergy Other (See Unverified 03/16/25 08:31 Comment) oxycodone (From Percocet) Allergy Other (See Unverified 03/16/25 08:31 Comment) General Stated Complaint: Nausea/Vomit/Diar SAMIR: 3 Review of Systems All systems reviewed & are unremarkable except as noted in HPI and below Exam Narrative Exam Narrative: GENERAL APPEARANCE: Well-nourished, non-toxic, awake and alert, atraumatic, no acute distress. SKIN: Warm, pink, dry, intact, without rashes/lesions/ulcerations. HEAD: Normocephalic, atraumatic, normal hair distribution for gender/age. EYES: Normal conjunctiva, no exudates on lids/lashes. ENT: Nares patent, no circumoral cyanosis, no facial swelling NECK: Supple, trachea midline, painless cervical ROM. LUNGS/CHEST: Lungs CTA bilaterally- no rhonchi/rales/wheezes diffusely, non-labored respirations, normal A/P diameter, symmetrical expansion, no chest wall deformity HEART (CV/PV): Regular rate and rhythm without murmur, no peripheral edema, no JVD. ABDOMEN: Soft, non-distended, no guarding, epigastric tenderness, R sided ostomy in place, no CVA tenderness to percussion bilaterally. MSK: Normal ROM, no swelling/deformity to bilateral UEs or LEs, moving all extremities without weakness, no cyanosis, spine midline without tenderness, normal curvature. NEURO: Mental Status AAOx4 - alert to person, place, time, events No facial droop, no forehead involvement. Motor: No focal weakness - strength 5/5 in bilateral UEs and LEs, proximal and distal, symmetric. Sensory: sensation intact to light touch globally. Gait normal: patient ambulated without ataxia into ED room. PSYCH: euthymic, cooperative, pleasant, appropriate speech Course Vital Signs Vital signs: Vital Signs Temperature 36.4 C L 03/16/25 08:22 Pulse 79 03/16/25 08:22 Respiratory Rate 17 03/16/25 08:22 Blood Pressure 106/61 03/16/25 08:22 Pulse Oximetry 97 03/16/25 08:22 Temperature 36.4 C L 03/16/25 08:32 Temperature Source Tympanic 03/16/25 08:32 Pulse 79 03/16/25 08:32 Respiratory Rate 17 03/16/25 08:32 Blood Pressure 106/61 03/16/25 08:32 Blood Pressure Position Supine 03/16/25 08:32 Pulse Oximetry 97 03/16/25 08:32 Oxygen Delivery Method Room Air 03/16/25 08:32 Oxygen Flow Rate 0 03/16/25 08:32 Pain Level 7 03/16/25 08:32 Lab/Test Results Lab/Test Results: 03/16/25 09:21 Stool Lactoferrin Latex Agglutination - Final Laboratory Tests Range/Units 03/16/25 03/16/25 03/16/25 09:02 09:04 09:21 WBC (4.4-10.8) 10^3/uL 6.50 RBC (3.93-5.22) 10^6/uL 5.71 H Hgb (11.2-15.7) g/dL 17.6 H Hct (36.0-46.0) % 50.5 H MCV (80-95) fL 88 MCH (27.0-33.0) pg 30.8 MCHC (32.0-36.0) % 34.9 RDW (11.7-14.6) % 11.8 Plt Count (130-400) 10^3/uL 312 MPV (8.0-11.0) fL 10.1 Immature Gran % % 0.3 Neutrophils % % 53.0 Lymphocytes % % 36.0 Atypical Lymphs % % 3 Monocytes % % 8.0 Eosinophils % % 0.3 Basophils % % 0.5 Nucleated RBC % (0.0-0.3) % 0.0 Absolute Neutrophils (1.2-6.7) 10^3/uL 3.45 Absolute Lymphocytes (1.2-3.4) 10^3/uL 2.54 Absolute Monocytes (0.1-0.8) 10^3/uL 0.52 Absolute Eosinophils (0.0-0.7) 10^3/uL 0.02 Absolute Basophils (0.0-0.2) 10^3/uL 0.03 RBC Morphology Normal VBG Lactate (<or=2.0) mmol/L 1.5 Sodium (136-145) mmol/L 135 L Potassium (3.5-5.1) mmol/L 3.2 L Chloride (98-107) mmol/L 96 L Carbon Dioxide (21.0-32.0) mmol/L 17.6 L Anion Gap (3-11) mmol/L 21.4 H BUN (7-18) mg/dL 101 H* Creatinine (0.55-1.02) mg/dL 4.0 H* Est GFR (CKD-EPI 2020) (mL/min/1.73m2) 11.70 Glucose (74-106) mg/dL 131 H Calcium (8.5-10.1) mg/dL 10.7 H Magnesium (1.8-2.4) mg/dL 1.9 Total Bilirubin (0.2-1.0) mg/dL 1.0 AST (15-37) U/L 38 H ALT (14-59) U/L 48 Alkaline Phosphatase (46-116) U/L 139 H Total Protein (6.4-8.2) g/dL 9.3 H Albumin (3.4-5.0) g/dL 4.9 Lipase (<78) U/L 63 Stl C.difficile Tox PCR (Negative) POSITIVE A COVID-19 Source Nasopharynx SARS-CoV-2 (PCR) (Negative) Negative Influenza Type A (PCR) (Negative) Negative Influenza Type B (PCR) (Negative) Negative RSV (PCR) (Negative) Negative Medical Decision Making This dictation utilizes [id number] dictation software and may contain unedited grammatical errors. 69 year-old female presents to ED today by POV/ambulating with a chief complaint of nausea/vomiting, diarrhea, abdominal pain with onset for the past 2 weeks. States completely liquid still in her ostomy bag every couple hours. Quality described as generalized abdominal pain, nausea/vomiting, no radiation to overt fevers, endorses chronic SOB, denies chest pain, denies black/bloody ostomy output, endorses that she is urinating normally. Severity is described as severe. Palliating factors include nothing specific. Provoking factors include nothing specific. Events leading up to the incident/Associated Symptoms: Patient denies antibiotic exposure in the last month. Patients' medical history: [ ]. Family and social history: [ ]. Pertinent exam findings / vital signs include epigastric tenderness without rebound tenderness, negative Krishnan sign, no CVA tenderness bilaterally, vital stable, benign cardiopulmonary status, neuro. Differential / pathologies of concern include gastroenteritis, C. difficile, electrolyte abnormality, unlikely mesenteric ischemia or bowel obstruction. Diagnostic studies of: - CBC, CMP, lactate, magnesium, lipase, C. difficile, lactoferrin stool test, stool culture, COVID/flu/RSV PCR. - SCr 4.0,BUN 101- still making urine - C. diff positive -Otherwise unremarkable workup Interventions of: -1L IVF LR, 1L IVF NS, PO fidaxomicin 200mg, 1g IV Tylenol, 4mg IV Zofran. -Consulted with Hospitalist Dr. Pablo, accepted for admit 1045 ED Course/Assessment/Plan: 69-year-old female presents with gastroenteritis for the past 2 weeks, having liquid diarrhea into her ostomy every couple hours having to drain it, I am suspicious for C. difficile though she does not have any recent antibiotic exposures, her C. difficile did test positive, her BUN is 101, creatinine is 4.0, patient did urinate voluntarily this morning states that she has been urinating 1-2 times per day for the past couple weeks, I do not suspect she is in acute renal failure and I think she will likely respond to IV fluids, did start on oral fidaxomicin here in the ED- accepted to Med Surg by Dr. Pablo Disposition of Clostridium Difficile Infection, Acute Kidney Injury. Patient verbalized understanding of the plan and return to ED criteria and engaged in shared decision making. Medical Records Medical records reviewed: Yes I reviewed the patient's medical records. Lab Data Lab results reviewed: Yes I reviewed the patient's lab results. Labs: 03/16/25 09:21 Stool Lactoferrin Latex Agglutination - Final Laboratory Tests Range/Units 03/16/25 03/16/25 03/16/25 09:02 09:04 09:21 WBC (4.4-10.8) 10^3/uL 6.50 RBC (3.93-5.22) 10^6/uL 5.71 H Hgb (11.2-15.7) g/dL 17.6 H Hct (36.0-46.0) % 50.5 H MCV (80-95) fL 88 MCH (27.0-33.0) pg 30.8 MCHC (32.0-36.0) % 34.9 RDW (11.7-14.6) % 11.8 Plt Count (130-400) 10^3/uL 312 MPV (8.0-11.0) fL 10.1 Immature Gran % % 0.3 Neutrophils % % 53.0 Lymphocytes % % 36.0 Atypical Lymphs % % 3 Monocytes % % 8.0 Eosinophils % % 0.3 Basophils % % 0.5 Nucleated RBC % (0.0-0.3) % 0.0 Absolute Neutrophils (1.2-6.7) 10^3/uL 3.45 Absolute Lymphocytes (1.2-3.4) 10^3/uL 2.54 Absolute Monocytes (0.1-0.8) 10^3/uL 0.52 Absolute Eosinophils (0.0-0.7) 10^3/uL 0.02 Absolute Basophils (0.0-0.2) 10^3/uL 0.03 RBC Morphology Normal VBG Lactate (<or=2.0) mmol/L 1.5 Sodium (136-145) mmol/L 135 L Potassium (3.5-5.1) mmol/L 3.2 L Chloride (98-107) mmol/L 96 L Carbon Dioxide (21.0-32.0) mmol/L 17.6 L Anion Gap (3-11) mmol/L 21.4 H BUN (7-18) mg/dL 101 H* Creatinine (0.55-1.02) mg/dL 4.0 H* Est GFR (CKD-EPI 2020) (mL/min/1.73m2) 11.70 Glucose (74-106) mg/dL 131 H Calcium (8.5-10.1) mg/dL 10.7 H Magnesium (1.8-2.4) mg/dL 1.9 Total Bilirubin (0.2-1.0) mg/dL 1.0 AST (15-37) U/L 38 H ALT (14-59) U/L 48 Alkaline Phosphatase (46-116) U/L 139 H Total Protein (6.4-8.2) g/dL 9.3 H Albumin (3.4-5.0) g/dL 4.9 Lipase (<78) U/L 63 Stl C.difficile Tox PCR (Negative) POSITIVE A COVID-19 Source Nasopharynx SARS-CoV-2 (PCR) (Negative) Negative Influenza Type A (PCR) (Negative) Negative Influenza Type B (PCR) (Negative) Negative RSV (PCR) (Negative) Negative Quality:SDOH Health Related Social Needs: No Data to Display PFSH All Active Problems (Updated 03/16/25 @ 10:42 by MELANIE Rees) Acute kidney injury (Acute) Clostridium difficile infection (Acute) Social History Smoking/Tobacco Use Status: Never Smoking risk assessment performed?: Yes Alcohol Intake: current Alcohol Intake frequency: holidays/special occasions only Drug use: Never Substance use type: does not use Housing: house Do you feel safe at home: Yes Do you feel safe in your relationship?: Yes
[2025-03-16] MEDS: Normal Saline 1,000 ML 1000 ML IV ×2 (10:56→17:20)
[2025-03-16] MEDS: Fidaxomicin 200 MG TAB PO ×2 (10:56→20:33)
--- NOTE | 2025-03-16 12:58 | W.PC.ACHO ---
Registration Status: Primary Language: Preferred Language: ED Information & Data Chief Complaint Nausea/Vomit/Diar 03/16/25 10:34 Triage Note N/V/D on going for several 03/16/25 08:22 weeks, dizzy when she stands up Most Recent Vital Signs Temperature 36.4 C L 03/16/25 08:32 Temperature Source Tympanic 03/16/25 08:32 Pulse 75 03/16/25 12:50 Respiratory Rate 17 03/16/25 08:32 Blood Pressure 106/60 03/16/25 12:45 Blood Pressure Mean 76 03/16/25 12:45 Blood Pressure Position Supine 03/16/25 08:32 Pulse Oximetry 95 03/16/25 12:50 Oxygen Delivery Method Room Air 03/16/25 08:32 Oxygen Flow Rate 0 03/16/25 08:32 Pain Level 7 03/16/25 08:32 Allergies acetaminophen (From Percocet) Allergy (Unverified 03/16/25 08:31) Other (See Comment) SOB, hallucinations, decreased ROM hydromorphone (From Dilaudid) Allergy (Unverified 03/16/25 08:31) Other (See Comment) SOB, hallucinations, decreased ROM latex Allergy (Unverified 03/16/25 08:31) Other (See Comment) SOB, hallucinations, decreased ROM methotrexate Allergy (Unverified 03/16/25 08:31) Other (See Comment) SOB, hallucinations, decreased ROM morphine Allergy (Unverified 03/16/25 08:31) Other (See Comment) SOB, hallucinations, decreased ROM oxycodone (From Percocet) Allergy (Unverified 03/16/25 08:31) Other (See Comment) SOB, hallucinations, decreased ROM Precautions Isolation Standard precaution 03/16/25 08:28 IV IV Catheter Type [Right Peripheral IV Antecubital] IV Catheter Gauge [Right 20 Antecubital] Diagnostics 03/16/25 03/16/25 03/16/25 Range/Units 09:21 09:04 09:02 WBC 6.50 (4.4-10.8) 10^3/uL RBC 5.71 H (3.93-5.22) 10^6/uL Hgb 17.6 H (11.2-15.7) g/dL Hct 50.5 H (36.0-46.0) % MCV 88 (80-95) fL MCH 30.8 (27.0-33.0) pg MCHC 34.9 (32.0-36.0) % RDW 11.8 (11.7-14.6) % Plt Count 312 (130-400) 10^3/uL MPV 10.1 (8.0-11.0) fL Immature Gran % 0.3 % Neutrophils % 53.0 % Lymphocytes % 36.0 % Atypical Lymphs % 3 % Monocytes % 8.0 % Eosinophils % 0.3 % Basophils % 0.5 % Nucleated RBC % 0.0 (0.0-0.3) % Absolute Neutrophils 3.45 (1.2-6.7) 10^3/uL Absolute Lymphocytes 2.54 (1.2-3.4) 10^3/uL Absolute Monocytes 0.52 (0.1-0.8) 10^3/uL Absolute Eosinophils 0.02 (0.0-0.7) 10^3/uL Absolute Basophils 0.03 (0.0-0.2) 10^3/uL RBC Morphology Normal VBG Lactate 1.5 (<or=2.0) mmol/L Sodium 135 L (136-145) mmol/L Potassium 3.2 L (3.5-5.1) mmol/L Chloride 96 L (98-107) mmol/L Carbon Dioxide 17.6 L (21.0-32.0) mmol/L Anion Gap 21.4 H (3-11) mmol/L BUN 101 H* (7-18) mg/dL Creatinine 4.0 H* (0.55-1.02) mg/dL Est GFR (CKD-EPI 2020) 11.70 (mL/min/1.73m2) Glucose 131 H (74-106) mg/dL Calcium 10.7 H (8.5-10.1) mg/dL Magnesium 1.9 (1.8-2.4) mg/dL Total Bilirubin 1.0 (0.2-1.0) mg/dL AST 38 H (15-37) U/L ALT 48 (14-59) U/L Alkaline Phosphatase 139 H (46-116) U/L Total Protein 9.3 H (6.4-8.2) g/dL Albumin 4.9 (3.4-5.0) g/dL Lipase 63 (<78) U/L Stool Campylobacter PCR Pending Stl C.difficile Tox PCR POSITIVE A (Negative) Stool Salmonella PCR Pending Stool Shigella PCR Pending COVID-19 Source Nasopharynx SARS-CoV-2 (PCR) Negative (Negative) Cryptosporidium/Giardia Pending Influenza Type A (PCR) Negative (Negative) Influenza Type B (PCR) Negative (Negative) RSV (PCR) Negative (Negative) Shiga Toxin (PCR) Pending 03/16/25 09:21 Lactoferrin Latex Agglutination - Final Stool Intake and Output - 24 Hour Total 03/16/25 08:13 thru 03/16/25 10:09 Intake Total 1010 Balance 1010 Weight 90.718 kg Intake: IV 1010 Other: Stool Characteristics Liquid Falls Risk Assessment History of Falls No History 03/16/25 08:33 Contributing Factors Unstable,Impairments 03/16/25 08:33 Ambulatory Aids Uses ambulatory device 03/16/25 08:33 Tubes/Lines W/no contributing factors 03/16/25 08:33 Gait Evaluation W/no contributing factors 03/16/25 08:33 Cognition No cognitive impairment 03/16/25 08:33 Fall Total Score 41 03/16/25 08:33 Level of Risk Moderate Risk 03/16/25 08:33 v v v v v v v v v Sending and/or Receiving Nurses: Please use comment section below to note any information pertinent to the patient hand-off not included above. Information / Comments: Report received from: enrique
--- NOTE | 2025-03-16 15:58 | PHA.REVIEW2 ---
Pharmacy Admission Review Admission Clinical Review Admission Pharmacy Review: acetaminophen (From Percocet) Allergy (Unverified 03/16/25 08:31) Other (See Comment) hydromorphone (From Dilaudid) Allergy (Unverified 03/16/25 08:31) Other (See Comment) latex Allergy (Unverified 03/16/25 08:31) Other (See Comment) methotrexate Allergy (Unverified 03/16/25 08:31) Other (See Comment) morphine Allergy (Unverified 03/16/25 08:31) Other (See Comment) oxycodone (From Percocet) Allergy (Unverified 03/16/25 08:31) Other (See Comment) Resuscitation Status Full Code Height 5 ft 2 in Weight 90.718 kg Pharmacy Admission Review Renal Dosing Renal Dosing: BUN 101 mg/dL (7-18) H* 03/16/25 09:04 Creatinine 4.0 mg/dL (0.55-1.02) H* 03/16/25 09:04 Medications needing adjustments: Intervened (CrCl 14.29 mL/min) List of meds needing interventions: Changed famotidine from 20mg BID to 10mg daily due to CrCl < 30 Anticoagulation Anticoagulation: Hgb 17.6 g/dL (11.2-15.7) H 03/16/25 09:04 Hct 50.5 % (36.0-46.0) H 03/16/25 09:04 Plt Count 312 10^3/uL (130-400) 03/16/25 09:04 Creatinine 4.0 mg/dL (0.55-1.02) H* 03/16/25 09:04 DVT Prophylaxis: Intervened (Provider initially put in order for enoxaparin 40mg daily. Reached out to provider and recommended change to heparin given patients renal function.) Medications: Heparin (q12h) Relevant Labs Relevant Labs: Sodium 135 mmol/L (136-145) L 03/16/25 09:04 Potassium 3.2 mmol/L (3.5-5.1) L 03/16/25 09:04 Chloride 96 mmol/L (98-107) L 03/16/25 09:04 Magnesium 1.9 mg/dL (1.8-2.4) 03/16/25 09:04 Electrolytes, C-Reactive P, ESR: Reviewed Cardiac Review BP, HR, EF%: Reviewed (BP 99/72, HR WNL) List meds needing interventions: Has order for spironolactone 25mg daily QTc Review QTc: Reviewed (465 from 03/16/25) IV to PO Switch IV Medications: Reviewed (No IV orders) Home Meds Home Med List reviewed: Intervened Relevent Home Meds Not ordered & why?: isosorbide (PRN) Reached out to provider to confirm patients isosorbide dose. Home med list had 60mg ER once daily but external med list showed a 30mg ER daily prescription having been filled the same day. Per nurse patient takes 90mg ER daily with 10mg BID PRN. Added both the 30mg ER daily and PRN 10mg to home med list. Provider aware - order was changed to 90mg ER daily External fill history showed that patient recently filled atorvastatin. Reached out to confirm with nurse. Per nurse patient does take 40mg atorvastatin once daily. I added to home med list and informed provider. Provider added order. Current Meds Current Medication Order Review: Intervened Comments: Order put in for now one Flu shot. Messaged provider who said they want patient to receive prior to discharge. I canceled order for now. Patient received now one Fidaxomicin 200mg in ED today at 1056. Continued order not put in yet.
--- NOTE | 2025-03-16 15:59 | HPE_ITS ---
Date of service: 03/16/25 Time of Service: 15:59 Assessment and Plan Assessment and plan (1) Acute kidney injury: Status: Acute Assessment and plan: Elevated BUN/Creatinine (101/4.0), though patient is still making urine. Likely volume depletion (pre-renal JAME) IVF will recheck this afternoon Trend daily Voided - spec to lab (2) Clostridium difficile infection: Status: Acute Assessment and plan: Patient with liquid diarrhea through ostomy for 2 weeks, found C. difficile positive despite no recent antibiotic use. MIVF bolus 1 litre NS (in addition to 1 litre in ED) Fidaxomicin 200 mg PO BID x 10 days * Dose: 200 mg orally * Frequency: Every 12 hours * Duration: 10 days History of Present Illness History of Present Illness Chief Complaint: Nausea, vomiting, diarrhea and abdominal pain Narrative: 69-year-old female presents to [facility] ED ambulatory via POV with 2 weeks of severe generalized abdominal pain, nausea, vomiting, and profuse diarrhea. Reports liquid output into her ostomy bag every few hours. Denies recent antibiotic use, black or bloody output, fever, or chest pain. Endorses chronic SOB but denies changes in urination pattern; reports urinating 1?2 times daily. No clear palliating or provoking factors. No known sick contacts. Patient with liquid diarrhea through ostomy for 2 weeks, found C. difficile positive despite no recent antibiotic use. Elevated BUN/Creatinine (101/4.0), though patient is still making urine. Likely volume depletion (pre-renal JAME). Interventions in ED: * 1L IV Lactated Ringer?s + 1L IV NS * PO Fidaxomicin 200mg started * IV Tylenol 1g * IV Zofran 4mg * Diagnostics: CBC, CMP, Mg, Lipase, Lactate, COVID/Flu/RSV PCR, C. difficile, stool lactoferrin, stool culture Disposition: Admitted to Med/Surg for ongoing management of CDI and JAME Patient verbalized understanding of diagnosis, treatment plan, and return precautions Patient is a full code Review of Systems Narrative: GI: Positive for nausea, vomiting, diarrhea, abdominal pain : Denies dysuria, hematuria. Voiding 1?2x/day. CV/Resp: Denies chest pain. Endorses chronic SOB. Constitutional: No fevers or chills Neuro: No focal deficits PFSH All Active Problems (Updated 03/16/25 @ 10:42 by MELANIE Rees) Acute kidney injury (Acute) Clostridium difficile infection (Acute) Social History Smoking/Tobacco Use Status: Never Smoking risk assessment performed?: Yes Alcohol Intake: current Alcohol Intake frequency: holidays/special occasions only Drug use: Never Substance use type: does not use Housing: house Do you feel safe at home: Yes Do you feel safe in your relationship?: Yes Meds Allergies and Home Medications Allergies Allergy/AdvReac Type Severity Reaction Status Date / Time acetaminophen (From Percocet) Allergy Other (See Unverified 03/16/25 08:31 Comment) hydromorphone (From Dilaudid) Allergy Other (See Unverified 03/16/25 08:31 Comment) latex Allergy Other (See Unverified 03/16/25 08:31 Comment) methotrexate Allergy Other (See Unverified 03/16/25 08:31 Comment) morphine Allergy Other (See Unverified 03/16/25 08:31 Comment) oxycodone (From Percocet) Allergy Other (See Unverified 03/16/25 08:31 Comment) Home Medications ?Medication ?Instructions ?Recorded ?Confirmed ?Type famotidine 20 mg tablet 20 mg PO BID 02/22/23 03/16/25 History isosorbide mononitrate 60 mg 60 mg PO DAILY 02/22/23 03/16/25 History tablet,extended release 24 hr levothyroxine 112 mcg tablet 112 mcg PO DAILY 02/22/23 03/16/25 History (Synthroid) pantoprazole 40 mg tablet,delayed 40 mg PO BID 02/22/23 03/16/25 History release aspirin 325 mg tablet 325 mg PO DAILY 04/05/23 03/16/25 History atorvastatin 40 mg tablet 40 mg PO DAILY 03/16/25 03/16/25 History isosorbide mononitrate 10 mg tablet 10 mg PO BID PRN 03/16/25 03/16/25 History isosorbide mononitrate 30 mg 30 mg PO QAM 03/16/25 03/16/25 History tablet,extended release 24 hr spironolactone 25 mg tablet 25 mg PO DAILY 03/16/25 03/16/25 History Exam Narrative Exam Narrative: * General: Alert, NAD Abd: Soft, non-distended, epigastric tenderness without rebound GI: Ostomy present with continuous liquid output CV: RRR, no murmurs Pulm: CTAB Neuro: Grossly intact Skin: No rash : No CVA tenderness bilaterally Results Labs 03/16/25 09:04 03/16/25 09:04 Labs: Laboratory Results - last 24 hr 03/16/25 03/16/25 03/16/25 09:02 09:04 09:21 WBC 6.50 RBC 5.71 H Hgb 17.6 H Hct 50.5 H MCV 88 MCH 30.8 MCHC 34.9 RDW 11.8 Plt Count 312 MPV 10.1 Immature Gran % 0.3 Neutrophils % 53.0 Lymphocytes % 36.0 Atypical Lymphs % 3 Monocytes % 8.0 Eosinophils % 0.3 Basophils % 0.5 Nucleated RBC % 0.0 Absolute Neutrophils 3.45 Absolute Lymphocytes 2.54 Absolute Monocytes 0.52 Absolute Eosinophils 0.02 Absolute Basophils 0.03 RBC Morphology Normal VBG Lactate 1.5 Sodium 135 L Potassium 3.2 L Chloride 96 L Carbon Dioxide 17.6 L Anion Gap 21.4 H BUN 101 H* Creatinine 4.0 H* Est GFR (CKD-EPI 2020) 11.70 Glucose 131 H Calcium 10.7 H Magnesium 1.9 Total Bilirubin 1.0 AST 38 H ALT 48 Alkaline Phosphatase 139 H Total Protein 9.3 H Albumin 4.9 Lipase 63 Stl C.difficile Tox PCR POSITIVE A COVID-19 Source Nasopharynx SARS-CoV-2 (PCR) Negative Influenza Type A (PCR) Negative Influenza Type B (PCR) Negative RSV (PCR) Negative Last Vital Signs Temp 36.6 C 03/16/25 15:40 Pulse 70 03/16/25 15:40 Resp 16 03/16/25 15:40 BP 99/72 L 03/16/25 15:40 Pulse Ox 99 03/16/25 15:40 PAWSS Have you Been Recently Intoxicated or Drunk Within the Last 30 days?: No Have you Ever Experienced Previous Episodes of Alcohol Withdrawal?: No Have you ever Experienced Withdrawal Seizures?: No Have you ever Experienced Delirium Tremens(DT)s?: No Have you ever undergone Alcohol Rehabilitation Treatment (i.e, inpt ot outpatient treatment programs)?: No Have you ever Experienced Blackouts?: No Have you ever Combined Alcohol with other Downers within the last 90 days?: No Have you ever Combined Alcohol with any other Substance of Abuse during the last 90 days?: No Positive Blood Alcohol level on Presentation? [PCS.BAL]: No Evidence of Increased Autonomic Activity (i.e. HR>120, tremor, sweating, agitation, nausea)?: No Result: 0 Time Spent Time spent with Patient: 40-54 minutes Time was spent: preparing to see the patient(eg.review tests), obtaining and/or reviewing separately otained hiistory, ordering medications,tests, procedures, referring, communicating with other health medical care manager, indepentently interpreting results, counseling the patient and care coordination
[2025-03-16 16:46] LABS: Bilirubin Small (Negative); Blood Negative (Negative); Clarity Clear (Clear); Glucose Negative (Negative); Ketones Trace mg/dL (Negative); Leukocyte Esterase Large (Negative); Nitrite Negative (Negative); Urobilinogen 0.2 mg/dL (Up to 0.2); pH 5.5 (5-8)
[2025-03-16 16:54] LABS: Bacteria Packed HPF (Negative); C & S Indicated? Yes; Casts 0-2 Hyaline LPF (Negative); Crystals Negative HPF (Negative); Epithelial Cells Few HPF (Negative); Mucus Negative (Negative); Other Cells Few Renal (Negative); RBC Negative HPF (0-2); WBC >50 HPF (0-5)
[2025-03-16] MEDS: Normal Saline 1,000 ML 150 ML IV (18:20)
[2025-03-16 19:50] LABS: Anion Gap 11.6 mmol/L (3-11); CO2 21.4 mmol/L (21.0-32.0); CREATININE 2.4 mg/dL (0.55-1.02); Calcium 8.8 mg/dL (8.5-10.1); Chloride 105 mmol/L (98-107); Glucose 96 mg/dL (74-106); Sodium 138 mmol/L (136-145)
[2025-03-16 19:53] LABS: BUN 85 mg/dL (7-18)
[2025-03-16 19:54] LABS: Potassium 2.9 mmol/L (3.5-5.1)
[2025-03-16] MEDS: diphenhydrAMINE 25 MG CAP PO (20:33)
[2025-03-16] MEDS: POTASSIUM CHLORIDE 20 MEQ/100 ML BAG 50 MEQ IV_INF (20:34)
[2025-03-16] MEDS: Pantoprazole 40 MG TABCR PO (20:34)
[2025-03-16] MEDS: Heparin 5,000 UNITS/ML VIAL 5000 UNITS SC (20:35)
[2025-03-16 20:54] LABS: Lab Add On Test DONE
[2025-03-16 21:03] LABS: Magnesium 1.5 mg/dL (1.8-2.4)
[2025-03-16] MEDS: Normal Saline 500 ML IV (22:07)
[2025-03-16 22:11] LABS: Campylobacter PCR Negative (Negative); Salmonella PCR Negative (Negative); Shiga Toxin PCR Negative (Negative); Shigella/Enteroinvasive Ecoli Negative (Negative)
[2025-03-16] MEDS: Potassium Chloride 20 MEQ TABCR 40 MEQ PO (22:12)
[2025-03-17] VITALS (11 sets, daily range): BP systolic 89–112; BP diastolic 50–67; PULSE 55–74; RESP 15–20; TEMP 36–36.5; O2SAT 88–98
--- NOTE | 2025-03-17 | DI.CT_ITS ---
Exam(s) CT RENAL COLIC WO EXAM: CT RENAL COLIC WO CLINICAL HISTORY: UTI, Hypotension, increased creatinine. TECHNIQUE: Imaging Protocol: Axial computed tomography images with coronal and sagittal reformatted images were created and reviewed CONTRAST MATERIAL: Intravenous: none Oral: None COMPARISON: CT CT ABDOMEN PELVIS W from 02/22/[address] BRAIN NECK CTA from 04/05/2023 FINDINGS: VISUALIZED LUNG BASES: Scarring in the lung bases again noted. No pleural effusions.. ABDOMEN: ABDOMINAL WALL/GI: There has been interval surgery. Left sided colostomy now appears satisfactory. However, there is now a prominent central and right of central anterior abdominal wall hernia which c ontains multiple bowel loops including part of the transverse colon as well as some nondilated small bowel loops which do not appear edematous. There is no evidence of bowel obstruction. There is some gas in the anterior abdominal subcutaneous right-side tissues both anterior to the hernia and latera l to the hernia. I suspect that these are from injection sites as opposed to intrinsic bowel patholo gy Rectosigmoid is oversewn. LIVER: There are no obvious focal hepatic lesions evident of this noninfused study. GALLBLADDER/BILIARY: Gallbladder is again noted be surgically absent. CBD is not dilated. PANCREAS: The pancreas is again noted to be mildly atrophic. The pancreatic duct is not dilated. Th ere is no evidence of significant pancreatic mass nor pancreatic calcifications. SPLEEN: Spleen is not enlarged. No obvious intrasplenic lesions. ADRENALS: There are no significant adrenal masses. KIDNEYS:No significant focal findings in the kidneys. No solid renal masses. No calculi nor hydronep hrosis.. No perinephric streaking nor perinephric fluid collections. Ureters are not dilated. Phle boliths are again noted in both sides the pelvis. URINARY BLADDER: Un remarkable. ABDOMINAL AORTA: Abdominal aorta is not enlarged. LYMPH NODES: There is no retroperitoneal nor paraaortic adenopathy. ABDOMINAL WALL: No evidence of significant anterior abdominal wall nor inguinal hernia. PELVIS: LYMPH NODES: There is no intrapelvic nor inguinal adenopathy. GI: No evidence of appendicitis.No evidence of sigmoid diverticulitis. URINARY BLADDER: No calculi nor obvious masses evident REPRODUCTIVE: Uterus is again noted to be surgically absent. There are no abnormal adnexal masses an d there is no free fluid in the pelvis. OSSEOUS: No fractures. Facet arthrosis noted in the lower lumbar spine. No osseous lesions. Sclero tic density across the upper half of the right sacroiliac joint noted which is unchanged from CT scan of February 2023 and benign appearance. No lytic osseous lesions evident. No fractures. IMPRESSION: 1. Compared to the prior CT scan 02/22/2023 there has been interval surgery with improved appearance of the left sided colostomy site. However, there is now a prominent right of center wide hernia sac which contains part of the transverse colon and some small bowel loops. There is no evidence of mimi l obstruction related to this hernia. No ascites. No free air. 2. There is a small amount of air in the subcutaneous fat anterior to the right-side of the hernia sa c and more laterally on the right side. However, I feel this is most probably related to subcutaneou s injections, more so than bowel perforation at this level. There is no fluid collection at this lev el nor elsewhere in the subcutaneous tissues. 3. No evidence of urinary tract calculi nor obstruction of the urinary tracts, as per request. 4. Previous cholecystectomy and hysterectomy again noted. Report called by myself to hospitalist nurse-practitioner 03/17/2025 at 6:32 p.m. RADIATION DOSE DELIVERED: 1,160.63mGy.cm Total DLP DATA REPOSITORY: All CT scans at this facility are submitted to the National Radiology Data Registry (NRDR) Dose Index Registry (DIR) with the [employer] (ACR). RADIATION OPTIMIZATION: All CT scans at this facility use at least one of these dose optimization te chniques: automated exposure control; mA and/or kV adjustment per patient size (includes targeted exa ms where dose is matched to clinical indication); or iterative reconstruction.
[2025-03-17] MEDS: POTASSIUM CHLORIDE 10 MEQ/100 ML BAG 100 MEQ IV_INF ×2 (00:49→04:11)
[2025-03-17] MEDS: Normal Saline 1,000 ML 150 ML IV ×4 (02:21→20:26)
[2025-03-17] MEDS: Levothyroxine 112 MCG TAB PO (06:07)
[2025-03-17] MEDS: diphenhydrAMINE 25 MG CAP PO (06:10)
[2025-03-17 07:03] LABS: Abs Immature Grans 0.02 10^3/uL (0.0-0.06); HCT 36.8 % (36.0-46.0); HGB 12.9 g/dL (11.2-15.7); MCH 30.8 pg (27.0-33.0); MCHC 35.1 % (32.0-36.0); MCV 88 fL (80-95); MPV 10.3 fL (8.0-11.0); Platelet Count 231 10^3/uL (130-400); RBC 4.19 10^6/uL (3.93-5.22); RDW-SD 38.8 fL; WBC 5.62 10^3/uL (4.4-10.8)
[2025-03-17 07:20] LABS: Anion Gap 11.6 mmol/L (3-11); BUN 67 mg/dL (7-18); CO2 19.4 mmol/L (21.0-32.0); CREATININE 1.7 mg/dL (0.55-1.02); Calcium 8.8 mg/dL (8.5-10.1); Chloride 110 mmol/L (98-107); Estimated GFR 32.66 (mL/min/1.73m2); Glucose 83 mg/dL (74-106); Magnesium 1.6 mg/dL (1.8-2.4); Potassium 3.8 mmol/L (3.5-5.1); Sodium 141 mmol/L (136-145)
[2025-03-17 07:35] LABS: Diff Comment Manual Differential; RBC Morphology Normal
[2025-03-17 07:36] LABS: Absolute Eosinophil Count 0.06 10^3/uL (0.0-0.7); Absolute Lymphocyte Count 2.75 10^3/uL (1.2-3.4); Absolute Monocyte Count 0.34 10^3/uL (0.1-0.8); Absolute Neutrophil Count 2.47 10^3/uL (1.2-6.7); Atypical Lymphocytes % 11 %; Bands % 0 %
[2025-03-17] MEDS: Isosorbide Mononitrate 30 MG TABCR 90 MG PO (08:32)
[2025-03-17] MEDS: Pantoprazole 40 MG TABCR PO ×2 (08:32→20:27)
[2025-03-17] MEDS: Famotidine 20 MG TAB 10 MG PO (08:33)
[2025-03-17] MEDS: Spironolactone 25 MG TAB PO (08:34)
[2025-03-17] MEDS: Atorvastatin 40 MG TAB PO (08:34)
[2025-03-17] MEDS: Aspirin 325 MG TAB PO (08:38)
[2025-03-17] MEDS: Fidaxomicin 200 MG TAB PO ×2 (08:38→20:26)
[2025-03-17] MEDS: Heparin 5,000 UNITS/ML VIAL 5000 UNITS SC ×2 (08:39→20:27)
[2025-03-17] MEDS: Ondansetron 4 MG/2 ML VIAL IVP ×3 (09:27→20:27)
[2025-03-17] MEDS: Magnesium Chloride 64 MG TABCR PO (09:28)
--- NOTE | 2025-03-17 13:23 | INITIAL_ITS ---
Date of service: 03/17/25 Time of Service: 13:23 Care Management Initial Assmt Initial Assessment Reason for Hospitalization: Diarrhea Functional Status/Living Situation Patient Presentation: Sarina was sitting up in bed, when CM arrived. Sarina presented to the ED with a chief complaint of nausea/vomiting, diarrhea, abdominal pain. She states that she has been better and is not feeling great. Sarina lives in a single family, 4 story home, with her son, 4 grandchildren, and her sister (Sarina is her caregiver); her home is in [place] and she has lived there for 5 years. Per Sarina, she is independent at baseline. She states that she is going to start out patient physical therapy, prior to having 2 hip replacements done in April; Sarina has requested that PT here sees her. CM communicated this with the provider. Town of Residence: [place] Resides with: Other (Sister, son, and 4 grandkids) Significant Other/Family: Out of area ([place]) Natural Supports: Her family, and her coven (in [facility]) act as a natural support for her. 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 ) Instrumental Activities of Daily Living (ADLs): Independent Activities/Hobbies/SocialSupport: enjoys spending time with her family. Medications Medication Management: No Issues/Barriers identified Physical Functioning/Mobility Assistive Device: None identified Advance Directives Advance Directives: Do you have an Advance Directive: Y 04/05/23 09:52 AD On File at [facility]: N 04/05/23 09:52 Date Asked 03/16/25 03/16/25 08:27 AD Date Reviewed COLST On File at [facility] COLST Date Scanned Code Status Resuscitation Status Full Code Insurance Coverage/Financial Issues Insurance: BC/[place] [employer] Advantage? Financial Issues: None identified Care Team Visit Care Team Role Provider Type Tejal Ornelas NP MD [facility] STAFF PHYSICIAN Sunny Horne Primary Care Provider NON-[facility] STAFF PHYSICIAN MELANIE Rees Emergency Provider [facility] Antione Pablo MD Admit Provider [facility] STAFF PHYSICIAN Attending Provider Discharge Potential Discharge Needs: PT Evaluation and PCP F/U Appt Anticipated Barriers to Discharge: None Identified Patient/Family Education Needs: Review discharge instructions, discuss Ask Me Three Transportation: Private vehicle (by family ) Plan: Anticipate Sarina will be discharged home with no new services. She will follow up with his community providers and plan of care. She will transport via private vehicle by her family. CM will follow. Social Determinants of Health Screening Social Determinants of health last assessed in clinic: 03/17/25 Will the Patient Participate in the Screening?: Yes Do you worry about having a steady place to live?: no Problems where you live: no known problems In the past 12 months, have you had to go without electric, gas, oil or water in your home?: no 1. Within the past 12 months, we worried whether our food would run out before we got money to buy more.: Never true 2. Within the past 12 months, the food we bought just didn't last and we didn't have money to get more.: Never true Has lack of transportation kept you from medical appointments or from doing things needed for daily living?: no Has anyone in your life made you feel unsafe or unsupported?: no How hard is it for you to pay for the very basics like food, housing, medical care, and heating? Would you say it is:: Not hard at all Do you want help finding or keeping work or a job?: I do not need or want help If for any reason you need help with day-to-day activities such as bathing, preparing meals, shopping, managing finances, etc., do you get the help you need?: I don?t need any help How often do you feel lonely or isolated from those around you?: Never Do you speak a language other than Danish at home?: No PFSH All Active Problems (Updated 03/16/25 @ 10:42 by MELANIE Rees) Acute kidney injury (Acute) Clostridium difficile infection (Acute) Social History Smoking/Tobacco Use Status: Never Smoking risk assessment performed?: Yes Alcohol Intake: current Alcohol Intake frequency: holidays/special occasions only Drug use: Never Substance use type: does not use Housing: house Do you feel safe at home: Yes Do you feel safe in your relationship?: Yes Readmission Within the Past 30 Days Yes or No: No
[2025-03-17] MEDS: Normal Saline 500 ML 1000 ML IV (16:32)
--- NOTE | 2025-03-17 16:54 | CHAPLAIN ---
Sarina was sitting up in the chair when I visited this morning. She was pleasant and easily engaged in conversation. Sarina talked about being wiped out from [facility] and not feeling well for a few weeks. She is originally from [place], then bought a house in [place] five years ago to move into with her sister, son and grandchildren. She is happy she made the move. 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 She is in touch with her family, and also let extended family members know she is here. Sarina hopes to begin feeling better soon.
--- NOTE | 2025-03-17 17:10 | PGE_ITS ---
Date of Service Date of service: 03/17/25 Time of Service: 17:10 Assessment and Plan Assessment and plan (1) Acute kidney injury: Status: Acute Assessment and plan: Cr today 1.7, this afternoon 1.[address] renal - ventral hernia with small and large bowel (not incarcerated); no stones, no hydronephrosis - will do a surgical consult Urine positive for leuk esterase, protein and WBC; UCx pending Started on ceftriaxone 1 gm q 24h Trend daily (2) Clostridium difficile infection: Status: Acute Assessment and plan: Patient with liquid diarrhea through ostomy for 2 weeks, found C. difficile positive despite no recent antibiotic use. MIVF bolus 500 ml today, continued nausea and input must greater than output Continue Fidaxomicin 200 mg PO BID x 10 days * Dose: 200 mg orally * Frequency: Every 12 hours * Duration: 10 days (3) UTI (urinary tract infection): Status: Acute Assessment and plan: Urine positive for leuk esterase, protein and WBC; UCx pending Started on ceftriaxone 1 gm q 24h- unable to take oral due to nausea Trend daily Subjective Subjective Patient reports: no new complaints, tolerating liquids well, voiding w/o difficulty, bowel movement (ostomy - continues to be liquid and malodorous (expected)), diarrhea and nausea; denies tolerating a regular diet, flatus or vomiting Interval history since last seen: Patient continues to have nausea, no vomiting. Denies vertigo, dizziness. Exam Narrative Exam Narrative: General: Alert, NAD Abd: Soft, non-distended, epigastric tenderness without rebound GI: Ostomy present with continuous liquid output, right abd larger than left - patient reports it has been this way since ostomy was done 2y ago CV: RRR, no murmurs Pulm: CTAB Neuro: Grossly intact Skin: No rash : No CVA tenderness bilaterally Objective Last Vital Signs Temp 36.3 C L 03/17/25 15:19 Pulse 58 L 03/17/25 15:19 Resp 18 03/17/25 14:15 BP 89/56 L 03/17/25 15:19 Pulse Ox 97 03/17/25 14:15 Laboratory Results - last 24 hr 03/16/25 03/16/25 03/17/25 09:21 19:25 06:02 WBC 5.62 RBC 4.19 Hgb 12.9 D Hct 36.8 MCV 88 MCH 30.8 MCHC 35.1 RDW 12.0 Plt Count 231 MPV 10.3 Immature Gran % 0.0 Neutrophils % 44.0 Band Neutrophils % 0 Lymphocytes % 38.0 Atypical Lymphs % 11 Monocytes % 6.0 Eosinophils % 1.0 Basophils % 0.0 Nucleated RBC % 0.0 Absolute Neutrophils 2.47 Absolute Lymphocytes 2.75 Absolute Monocytes 0.34 Absolute Eosinophils 0.06 Absolute Basophils 0.00 RBC Morphology Normal Sodium 138 141 Potassium 2.9 L* 3.8 Chloride 105 110 H Carbon Dioxide 21.4 19.4 L Anion Gap 11.6 H 11.6 H BUN 85 H* 67 H Creatinine 2.4 H D 1.7 H Est GFR (CKD-EPI 2020) 21.60 32.66 Glucose 96 83 Calcium 8.8 8.8 Magnesium 1.5 L 1.6 L Stool Campylobacter PCR Negative Stool Salmonella PCR Negative Stool Shigella PCR Negative Cryptosporidium/Giardia SEE BELOW Shiga Toxin (PCR) Negative Add-On Test Request DONE PAWSS Have you Been Recently Intoxicated or Drunk Within the Last 30 days?: No Have you Ever Experienced Previous Episodes of Alcohol Withdrawal?: No Have you ever Experienced Withdrawal Seizures?: No Have you ever Experienced Delirium Tremens(DT)s?: No Have you ever undergone Alcohol Rehabilitation Treatment (i.e, inpt ot outpatient treatment programs)?: No Have you ever Experienced Blackouts?: No Have you ever Combined Alcohol with other Downers within the last 90 days?: No Have you ever Combined Alcohol with any other Substance of Abuse during the last 90 days?: No Positive Blood Alcohol level on Presentation? [PCS.BAL]: No Evidence of Increased Autonomic Activity (i.e. HR>120, tremor, sweating, agitation, nausea)?: No Result: 0 Time Spent with Patient Time Spent with Patient: 25-34 minutes Time was spent: preparing to see the patient(eg.review tests), ordering medic ations,tests, procedures, referring, communicating with other health palliative care specialist, indepentently interpreting results, counseling the patient and care coordination
[2025-03-17 17:49] LABS: Anion Gap 8.5 mmol/L (3-11); BUN 47 mg/dL (7-18); CO2 19.5 mmol/L (21.0-32.0); CREATININE 1.2 mg/dL (0.55-1.02); Calcium 7.8 mg/dL (8.5-10.1); Chloride 111 mmol/L (98-107); Estimated GFR 49.61 (mL/min/1.73m2); Glucose 95 mg/dL (74-106); Potassium 3.5 mmol/L (3.5-5.1); Sodium 139 mmol/L (136-145)
[2025-03-17] MEDS: Ketorolac 15 MG/ML VIAL IVP (18:33)
[2025-03-17] MEDS: cefTRIAXone 1 GM/50 ML BAG IVPB (18:34)
[2025-03-18] MEDS: Ondansetron 4 MG/2 ML VIAL IVP ×2 (01:47→07:40)
[2025-03-18 03:39] VITALS: BP 97/60; PULSE 64; RESP 15; TEMP 36.4; O2SAT 99
[2025-03-18] MEDS: Normal Saline 1,000 ML 100 ML IV (04:43)
[2025-03-18] MEDS: Levothyroxine 112 MCG TAB PO (04:47)
[2025-03-18 06:44] LABS: Abs Immature Grans 0.01 10^3/uL (0.0-0.06); Absolute Basophil Count 0.03 10^3/uL (0.0-0.2); Absolute Eosinophil Count 0.22 10^3/uL (0.0-0.7); Absolute Monocyte Count 0.38 10^3/uL (0.1-0.8); Absolute Neutrophil Count 1.36 10^3/uL (1.2-6.7); Basophils % 0.8 %; Eosinophils % 5.5 %; HCT 30.2 % (36.0-46.0); HGB 10.5 g/dL (11.2-15.7); Immature Grans % 0.3 %; MCH 31.3 pg (27.0-33.0); MCHC 34.8 % (32.0-36.0); MCV 90 fL (80-95); MPV 10.4 fL (8.0-11.0); Monocytes % 9.5 %; Neutrophils % 33.9 %; Platelet Count 176 10^3/uL (130-400); RBC 3.36 10^6/uL (3.93-5.22); RDW 12.3 % (11.7-14.6); RDW-SD 40.5 fL
[2025-03-18 07:03] LABS: Anion Gap 9.6 mmol/L (3-11); BUN 31 mg/dL (7-18); CO2 20.4 mmol/L (21.0-32.0); Calcium 8.5 mg/dL (8.5-10.1); Chloride 115 mmol/L (98-107); Estimated GFR 61.75 (mL/min/1.73m2); Glucose 99 mg/dL (74-106); Magnesium 1.3 mg/dL (1.8-2.4); Potassium 3.3 mmol/L (3.5-5.1); Sodium 145 mmol/L (136-145)
[2025-03-18 07:30] VITALS: BP 90/55; PULSE 58; RESP 18; TEMP 36.7; O2SAT 98
[2025-03-18] MEDS: Heparin 5,000 UNITS/ML VIAL 5000 UNITS SC (07:39)
[2025-03-18] MEDS: Magnesium Chloride 64 MG TABCR PO (07:40)
[2025-03-18] MEDS: Isosorbide Mononitrate 30 MG TABCR 90 MG PO (07:40)
[2025-03-18] MEDS: Aspirin 325 MG TAB PO (07:40)
[2025-03-18] MEDS: Fidaxomicin 200 MG TAB PO (07:41)
[2025-03-18] MEDS: Atorvastatin 40 MG TAB PO (07:41)
[2025-03-18] MEDS: Pantoprazole 40 MG TABCR PO (07:41)
[2025-03-18] MEDS: Famotidine 20 MG TAB 10 MG PO (07:41)
--- NOTE | 2025-03-18 09:59 | PGE_ITS ---
Date of Service Date of service: 03/18/25 Time of Service: 09:59 Assessment and Plan Assessment and plan (1) Acute kidney injury: Status: Acute Assessment and plan: Cr today 1.7, this afternoon 1.[address] renal - ventral hernia with small and large bowel (not incarcerated); no stones, no hydronephrosis - will do a surgical consult Urine positive for leuk esterase, protein and WBC; UCx negative stop ceftriaxone 1 gm q 24h Trend daily (2) Clostridium difficile infection: Status: Acute Assessment and plan: Patient with liquid diarrhea through ostomy for 2 weeks, found C. difficile positive despite no recent antibiotic use. MIVF bolus 500 ml today, continued nausea and input must greater than output Continue Fidaxomicin 200 mg PO BID x 10 days * Dose: 200 mg orally * Frequency: Every 12 hours * Duration: 10 days (3) Hypotension: Status: Acute Assessment and plan: BP 90/55 r/o orthostasis- if positive IVF bolus and reassess Albumin 4.9 on admission (4) UTI (urinary tract infection): Status: Acute Assessment and plan: Urine positive for leuk esterase, protein and WBC; UCx negative stop ceftriaxone 1 gm q 24h Discussed with Dr. Pablo Objective Last Vital Signs Temp 36.7 C 03/18/25 07:30 Pulse 58 L 03/18/25 07:30 Resp 18 03/18/25 07:30 BP 90/55 L 03/18/25 07:30 Pulse Ox 98 03/18/25 07:30 Laboratory Results - last 24 hr 03/16/25 03/17/25 03/18/25 09:21 17:26 06:19 WBC 4.00 L RBC 3.36 L Hgb 10.5 L D Hct 30.2 L MCV 90 MCH 31.3 MCHC 34.8 RDW 12.3 Plt Count 176 MPV 10.4 Immature Gran % 0.3 Neutrophils % 33.9 Lymphocytes % 50.0 Monocytes % 9.5 Eosinophils % 5.5 Basophils % 0.8 Nucleated RBC % 0.0 Absolute Neutrophils 1.36 Absolute Lymphocytes 2.00 Absolute Monocytes 0.38 Absolute Eosinophils 0.22 Absolute Basophils 0.03 Sodium 139 145 Potassium 3.5 3.3 L Chloride 111 H 115 H Carbon Dioxide 19.5 L 20.4 L Anion Gap 8.5 9.6 BUN 47 H 31 H Creatinine 1.2 H 1.0 Est GFR (CKD-EPI 2020) 49.61 61.75 Glucose 95 99 Calcium 7.8 L 8.5 Magnesium 1.3 L Cryptosporidium/Giardia SEE BELOW PAWSS Have you Been Recently Intoxicated or Drunk Within the Last 30 days?: No Have you Ever Experienced Previous Episodes of Alcohol Withdrawal?: No Have you ever Experienced Withdrawal Seizures?: No Have you ever Experienced Delirium Tremens(DT)s?: No Have you ever undergone Alcohol Rehabilitation Treatment (i.e, inpt ot outpatient treatment programs)?: No Have you ever Experienced Blackouts?: No Have you ever Combined Alcohol with other Downers within the last 90 days?: No Have you ever Combined Alcohol with any other Substance of Abuse during the last 90 days?: No Positive Blood Alcohol level on Presentation? [PCS.BAL]: No Evidence of Increased Autonomic Activity (i.e. HR>120, tremor, sweating, agitation, nausea)?: No Result: 0
--- NOTE | 2025-03-18 10:23 | W.SURGCON ---
Date of service: 03/18/25 Time of Service: 10:23 Assessment and Plan Assessment and plan (1) Ventral hernia without obstruction or gangrene: Status: Acute Assessment and plan: 69-year-old woman with a very large abdominal wall ventral hernia secondary to prior surgical explorations. She is hemodynamically stable, she has good bowel function, she has no subjective symptoms to suggest obstruction and the hernia itself is not tender. Her abdominal exam is benign and there are no acute issues with her large hernia. Her chronic diarrhea from a colostomy is suspicious for chronic C. difficile that has been undiagnosed for years as 1 etiology possibility. Colostomy output, in general, should be relatively formed. This can be managed and investigated on an outpatient basis and she agrees to discuss further with her PCP. I carefully reviewed her ventral hernia radiographically. This hernia measures 15.5 cm x 9.5 cm in largest dimensions. She is not a candidate for surgery at a BMI of 37. It is unclear to me how her chronic medical conditions would play into an elective surgical situation but, even if she had no chronic medical conditions, her BMI needs to be under 30 before this hernia is considered for elective repair. This is NOT a parastomal hernia and is independent of her left-sided colostomy. Repairing this hernia would be best performed robotically - a robotic bilateral TAR and an extremely large?piece of mesh spanning the entire, bilateral abdominal wall with a keyhole for the colostomy. This should be done by a very advanced robotic surgeon who does 50+ complex abdominal wall hernia cases per year. The nearest regional surgeon who I would recommend for elective surgery like this would be Shaun Spear at [facility], [place], [place]. At the same time, her hernia does not seem to be symptomatic and probably the smartest and best option for her is to leave it alone at this time. Surgery signing off, call us back as needed History of Present Illness Narrative: Asked to consult on a large ventral hernia by the hospitalist team. She is in the hospital for acute on chronic diarrhea, vomiting/GI upset and testing positive for C. difficile. 69-year-old woman has a complex surgical history. 14 years ago she was operated on at an outside facility in a different state for perforated bowel that she thinks was diverticulitis. It was not cancer. A left lower quadrant end colostomy was performed. She says that it was never reversed because she has scleroderma and severe interstitial lung disease and at the time they did not think she would live for more than a year or 2 back then. She is now doing drastically better from a pulmonary and chronic disease standpoint. During the years following her colostomy, she reports that she NEVER had formed stool. It has always been liquid diarrhea from her colostomy for as long as she can remember. She knows that this is unusual because her sister also has a colostomy and the patient knows that her sister always has formed stool from hers. She has learned to live with liquid diarrhea from her colostomy and says that she has NEVER had a formed stool. 2 years ago she presented to [facility] with acute incarceration and strangulation of bowel in a parastomal hernia around the colostomy. Though she does not recall having a ventral hernia before this, the CT scan from that visit shows an existing, uninvolved ventral hernia of the midline and right abdominal fascia in addition to the parastomal hernia. She was transferred to [facility] where emergency surgery exploration was performed and she reports the surgeon told me it was a 6-hour surgery and very difficult. At this surgery, her end colostomy was moved to the left upper quadrant, she had a large midline laparotomy incision and has since recovered and done well from this surgery. Her colostomy continues to be liquid diarrhea on a daily basis, but it functions well. Her only complaint from the surgery is they left me with a large hernia. CT scan from this visit shows a very large-mouth right?sided abdominal wall hernia containing colon and small bowel. The left?sided colostomy looks fine and there is no parastomal hernia at this time. The patient has morbid obesity with a BMI of 37 At the bedside the patient says that she is feeling drastically better than when she was admitted 2 days ago. The vomiting is gone away. She seems to be rehydrated at this point. Continues to have liquid diarrhea -which is baseline. HOWEVER, she is adamant that the amount of diarrhea she was having for a couple of days before hospitalization was way worse than usual. [facility] All Active Problems (Updated 03/18/25 @ 10:59 by Jelani Nayak MD) Ventral hernia without obstruction or gangrene (Acute) Hypotension (Acute) UTI (urinary tract infection) (Acute) Acute kidney injury (Acute) Clostridium difficile infection (Acute) Social History Smoking/Tobacco Use Status: Never Smoking risk assessment performed?: Yes Alcohol Intake: current Alcohol Intake frequency: holidays/special occasions only Drug use: Never Substance use type: does not use Housing: house Do you feel safe at home: Yes Do you feel safe in your relationship?: Yes Exam Narrative Exam Narrative: Gen: Non-toxic, comfortable and interactive. Well-nourished, she has morbid obesity. Neuro: Alert and oriented x3 Psych: Good mood and affect. Good insight and understanding into condition. Chest: Non-labored breathing, no wheezing, no visible shortness of breath. Heart: Regular Abdomen: Soft, obese, well?healed midline surgical scars. Large, soft, chronically incarcerated but easily-reducible right?sided ventral hernia. Functional colostomy bag on the left. There is no tenderness anywhere on examination and she has no tenderness subjectively. There is no distention. Results Last Vital Signs Temp 98.1 F 03/18/25 07:30 Pulse 58 L 03/18/25 07:30 Resp 18 03/18/25 07:30 BP 90/55 L 03/18/25 07:30 Pulse Ox 98 03/18/25 07:30 Labs 03/18/25 06:19 03/18/25 06:19 Labs: Laboratory Results - last 24 hr 03/16/25 03/17/25 03/18/25 09:21 17:26 06:19 WBC 4.00 L RBC 3.36 L Hgb 10.5 L D Hct 30.2 L MCV 90 MCH 31.3 MCHC 34.8 RDW 12.3 Plt Count 176 MPV 10.4 Immature Gran % 0.3 Neutrophils % 33.9 Lymphocytes % 50.0 Monocytes % 9.5 Eosinophils % 5.5 Basophils % 0.8 Nucleated RBC % 0.0 Absolute Neutrophils 1.36 Absolute Lymphocytes 2.00 Absolute Monocytes 0.38 Absolute Eosinophils 0.22 Absolute Basophils 0.03 Sodium 139 145 Potassium 3.5 3.3 L Chloride 111 H 115 H Carbon Dioxide 19.5 L 20.4 L Anion Gap 8.5 9.6 BUN 47 H 31 H Creatinine 1.2 H 1.0 Est GFR (CKD-EPI 2020) 49.61 61.75 Glucose 95 99 Calcium 7.8 L 8.5 Magnesium 1.3 L Cryptosporidium/Giardia SEE BELOW
[2025-03-18] MEDS: MAGNESIUM SULFATE 4 GM/100 ML BAG IV_INF (10:50)
[2025-03-18 11:07] VITALS: BP 100/63; BP 95/59; BP 98/54; PULSE 58; PULSE 68; PULSE 79; RESP 18; TEMP 36.4; O2SAT 96
[2025-03-18] MEDS: Potassium Chloride 20 MEQ TABCR 40 MEQ PO (11:37)
--- NOTE | 2025-03-18 13:10 | W.PM.DS.N ---
Date of service: 03/18/25 Time of Service: 13:10 DS: Diagnosis Discharge Diagnosis (1) Ventral hernia without obstruction or gangrene: Status: Acute Discharge Plan Disposition Patient Disposition: Home Condition: Improving Discharge Details Reason For Visit: Diarrhea Admit Date/Time: 03/16/25 11:24 Admit Provider: Antione Pablo Attending Provider: Antione Pablo Primary Care Provider: Sunny Horne [facility] Hospital Course: This 69 years old female patient with a past medical history of perforated bowels with colostomy, abdominal hernia hypertension, hypothyroidism, GERD presented to the ED on 03/16/2025 for evaluation of nausea vomiting, diarrhea via colostomy, abdominal pain starting 2 weeks prior to presentation. Workup in the ED found the patient to be closely from the facility positive in [facility] with a BUN and creatinine of 101 and 4.0, hypokalemia. In the ED patient was treated with the oral fidaxomicin and IV fluid. The patient was admitted to the medical surgical service for further evaluation and management. The patient continued to be treated with fidaxomicin, antiemetics and IV fluid, creatinine down to 1.0 today; patient tolerating oral intake and is hemodynamically stable. Surgical consult completed for abdominal hernia with no recommendation at this time. The patient will be discharged home on oral fidaxomicin to complete a total of 10 days of treatment and will have to follow-up with her primary care practitioner within 7 days of discharge. Recommendations for PCP follow-up: Serum electrolytes Completion of the course of antibiotics Discussed with Dr. Pablo Home Meds and New Rx's Prescriptions: New Dificid 200 mg Tablet 200 mg PO BID Qty: 17 0RF ondansetron 8 mg tablet,disintegrating 8 mg PO Q8H PRNQty: 10 0RF Continued aspirin 325 mg Tablet 325 mg PO DAILY isosorbide mononitrate 60 mg Tablet Extended Release 24 Hr 60 mg PO DAILY pantoprazole 40 mg Tablet,Delayed Release (Dr/Ec) 40 mg PO BID levothyroxine [Synthroid] 112 mcg Tablet 112 mcg PO DAILY spironolactone 25 mg tablet 25 mg PO DAILY Patient Comments: TAKE 1 TABLET BY MOUTH ONCE DAILY atorvastatin 40 mg tablet 40 mg PO DAILY Patient Comments: TAKE 1 TABLET BY MOUTH ONCE DAILY isosorbide mononitrate 30 mg tablet extended release 24 hr 30 mg PO QAM isosorbide mononitrate 10 mg tablet 10 mg PO BID PRN Patient Comments: For when raynauds is really bad Changed famotidine 20 mg Tablet 20 mg PO DAILY Qty: 0 0RF Discharge Instructions Referrals: Sunny Horne [Primary Care Provider] - (Follow-up within 7 days of discharge) Activity:: Activity as Tolerated Equipment/Supplies:: No Equipment Needed Diet:: heart healthy Discharge Orders Discharge Orders: Discharge Order (Routine); Ordered 03/18/25 Ordered By: Omayra Live DS: Summary Time Spent with Patient providing and/or coordinating discharge services: Greater than 30 minutes Status at Discharge Functional status at discharge: independent ambulation Overall status at discharge: patient is progressing back to baseline Mental Status: mental status grossly normal Speech and Movement: speech and movement normal Mood: congruent mood Affect: normal affect Quality:SDOH Health Related Social Needs: No Data to Display Exam Narrative Exam Narrative: Constitutional The patient is sitting in chair without acute distress Neuro:alert and oriented to self, person, place time and situation. No neurological focal deficit Resp: Normal respiratory pattern, speaks in full sentences, unlabored breathing, clear lung bilaterally Cardio: regular rhythm, S1, S2, no murmur GI: Abdomen is not distended, soft and minimal tenderness , patent colostomy to L abd, bowel sounds are present : Negative Costovertebral angle tenderness Back/spine/Pelvis: No back tenderness, normal alignment Integumentary: No skin lesions or rash Extremities: moves all 4 ext. Psych: RASS 0, congruent mood and normal affect. Psych Mental Status: mental status grossly normal Speech and Movement: speech and movement normal Mood: congruent mood Affect: normal affect DS: Data Vitals/I&O Vitals and I&O: Vital Signs Temperature 36.4 C L 03/18/25 11:07 Temperature Source Temporal Artery Scan 03/18/25 11:07 Pulse 58 L 03/18/25 11:07 Pulse Rhythm Regular 03/16/25 14:01 Respiratory Rate 18 03/18/25 11:07 Respiratory Depth Normal 03/16/25 14:01 Respiratory Pattern Normal 03/16/25 14:01 Blood Pressure 98/54 L 03/18/25 11:07 Blood Pressure Mean 75 03/18/25 11:07 Blood Pressure Position Supine 03/16/25 08:32 Pulse Oximetry 96 03/18/25 11:07 Oxygen Delivery Method Room Air 03/18/25 11:07 Oxygen Flow Rate 0 03/18/25 11:07 Pain Level 0 03/18/25 11:07 Comment rn notified 03/18/25 07:30 Intake & Output 03/17/25 03/18/25 03/18/25 23:59 11:59 23:59 Intake Total 2725.0 / 4347.5 1110 / 1110 Output Total 600 / 1300 1450 / 1450 Balance 2125.0 / 3047.5 -340 / -340 Intake: IV 2005.0 / 3327.5 1110 / 1110 Oral 720 / 1020 Output: Urine 300 / 1000 1450 / 1450 Stool 300 / 300 Other: Urine Color Yellow Yellow Urine Appearance Clear Clear Comment unmeasured, toilet paper went in commode Stool Characteristics Liquid Data Completed and Pending Labs on day of discharge: Labs from last 24 hours 03/18/25 06:19: WBC 4.00 L, RBC 3.36 L, Hgb 10.5 L D, Hct 30.2 L, MCV 90, MCH 31.3, MCHC 34.8, RDW 12.3, Plt Count 176, MPV 10.4, Immature Gran % 0.3, Neutrophils % 33.9, Lymphocytes % 50.0, Monocytes % 9.5, Eosinophils % 5.5, Basophils % 0.8, Nucleated RBC % 0.0, Absolute Neutrophils 1.36, Absolute Lymphocytes 2.00, Absolute Monocytes 0.38, Absolute Eosinophils 0.22, Absolute Basophils 0.03, Sodium 145, Potassium 3.3 L, Chloride 115 H, Carbon Dioxide 20.4 L, Anion Gap 9.6, BUN 31 H, Creatinine 1.0, Est GFR (CKD-EPI 2020) 61.75, Glucose 99, Calcium 8.5, Magnesium 1.3 L 03/17/25 17:26: Sodium 139, Potassium 3.5, Chloride 111 H, Carbon Dioxide 19.5 L, Anion Gap 8.5, BUN 47 H, Creatinine 1.2 H, Est GFR (CKD-EPI 2020) 49.61, Glucose 95, Calcium 7.8 L 03/16/25 09:21: Stool Ova & Parasites Pending, Cryptosporidium/Giardia SEE BELOW PFSH All Active Problems (Updated 03/18/25 @ 13:23 by Omayra Live APRN) Ventral hernia without obstruction or gangrene (Acute) Hypotension (Acute) UTI (urinary tract infection) (Acute) Acute kidney injury (Acute) Clostridium difficile infection (Acute) Social History Smoking/Tobacco Use Status: Never Smoking risk assessment performed?: Yes Alcohol Intake: current Alcohol Intake frequency: holidays/special occasions only Drug use: Never Substance use type: does not use Housing: house Do you feel safe at home: Yes Do you feel safe in your relationship?: Yes Time Spent with Patient Time Spent with Patient: 70-84 minutes4 Time was spent: preparing to see the patient(eg.review tests), obtaining and/or reviewing separately otained hiistory, ordering medications,tests, procedures, referring, communicating with other health health care technician, indepentently interpreting results, counseling the patient and care coordination
--- NOTE | 2025-03-18 13:54 | CMDISCH_ITS ---
Date of service: 03/18/25 Time of Service: 13:54 LACE Index Scoring Tool Questions: Length of Stay (in days): 2 Was the patient admitted via the E.D.?: Yes E.D. Visits: 1 Answers: Total Score: 6 Risk of Readmission: Low Risk Care Management Discharge Plan Reason for Hospitalization: Diarrhea Discharge Plan: Sarina will be discharged home with no new services. She will follow up with his community providers and plan of care. Further investigations regarding her hernia will be conducted on an outpatient basis. She will transport via private vehicle by her family. Patient/Family Education Needs: Review of discharge instructions, activity, limitation, and plan of care. Discuss ask me three [facility] Health Related Social Needs: No Data to Display
--- NOTE | 2025-03-18 15:09 | PT.INNT ---
PT Notes Visit Reasons: Diarrhea PT assessment was not completed prior to pt discharge to home. Per Nurse pt was independent with ambulation/mobility.
== END 2025-03-18 14:58 | disposition home or self-care (01) | DRG 372 ==
LOC: ER 10:42 → MS 13:40
PROVIDERS: Nurse Practitioner Family; Admitting Provider Family Medicine; Emergency Provider Physician Assistant; PCP Internal Medicine; Responsible Provider Nurse Practitioner Acute Care; Visit Provider Family Medicine
DX: A04.72 Enterocolitis due to Clostridium difficile, not specified as recurrent (principal); N17.9 Acute kidney failure, unspecified; N39.0 Urinary tract infection, site not specified; K43.2 Incisional hernia without obstruction or gangrene; Z93.3 Colostomy status; R11.2 Nausea with vomiting, unspecified; E03.9 Hypothyroidism, unspecified; I10 Essential (primary) hypertension; K21.9 Gastro-esophageal reflux disease without esophagitis; R10.9 Unspecified abdominal pain; E87.6 Hypokalemia; I95.9 Hypotension, unspecified
CPT/HCPCS: 00123; 36415; 80048; 80053; 83690; 87015; 87177; 87209; 87269; 87272; 87505; 87637; 93005; 96361; 96374; 96375; 99222; 99285; 74176; 81003; 81015; 83605; 83630; 83735; 85025; 87086; 93010; 99232; 99239; J0696; J1644; J1885; J2405; J3475; J3480

== ENCOUNTER 2025-07-08 03:01 | Outpatient (CLI) | payer MEDICARE, SELFPAY ==
--- NOTE | 2025-07-08 | DI.US_ITS ---
APPROVED REPORT EXAM: Comprehensive 2D, Doppler, and color-flow Echocardiogram Patient Location: Out-Patient Heel Top Lift Splitter: Ramona Rodriguez RDCS (AE) Indications: SOB, Interstitial lung disease, Pulmonary artery pressure Other Information Study Quality: Adequate Conclusion Normal left ventricular wall thickness and chamber size. Ejection fraction is 55%. Wall motion is normal Normal right ventricular size and function Both atria are normal in size There is no significant valvular disease Estimated right ventricular systolic pressure is 24 mmHg Ascending aorta measures 3.57 cm Wall motion Left Ventricle The left ventricle is normal size. The left ventricular systolic function is normal. The left ventricular ejection fraction is within the normal range. Mild concentric left ventricular hypertrophy. There is normal LV segmental wall motion. There is no ventricular septal defect visualized. LVEF is 55%. Right Ventricle The right ventricle is normal size. The right ventricular systolic function is normal. Atria The left atrium size is normal. The right atrium size is normal. The interatrial septum is intact with no evidence for an atrial septal defect. Aortic Valve The aortic valve is normal in structure. Aortic valve is trileaflet. There is no aortic valvular stenosis. No aortic regurgitation is present. Mitral Valve The mitral valve is normal in structure. No evidence of mitral valve stenosis. Trace mitral regurgitation. Tricuspid Valve The tricuspid valve is normal in structure. There is no tricuspid valve stenosis. Trace tricuspid regurgitation. The RVSP is 23.6 mmHg. Pulmonic Valve The pulmonary valve is normal in structure. There is no pulmonic valvular stenosis. There is no pulmonic valvular regurgitation. Great Vessels The aortic root is normal in size. The ascending aorta is mildly dilated. Aortic arch is not well visualized. IVC is normal in size and collapses >50% with inspiration. Pericardium There is no pericardial effusion. 2D Dimensions IVSD d PLAX 1.13 cm F: 0.6-1.0 Ao Root d 3.29 cm F: 2.7 - 3.3 LVPW d PLAX 1.15 cm F: 0.6 - 1.0 Ao Asc Diam d 3.57 cm F: 2.3 - 3.1 LVID d PLAX 4.60 cm F: 3.8 - 5.2 LVDs 3.30 cm F: 2.2 - 3.5 LV EF Teichholz 55.1 % FS 28.54 % LV EDV (Teich) 95.9 mL LV ESV (Teich) 43.1 mL M-Mode TAPSE 1.70 cm (M/F) >1.7 Auto EF LV EDV A4C 83.3 mL LV EDV A2C 125.3 mL LV EDV BP 104.8 mL LV ESV A4C 38.7 mL LV ESV A2C 56.7 mL LV ESV BP 47.5 mL LVEF(%) A4C 53.6 % LVEF(%) A2C 54.8 % LVEF(%) BP 54.6 % LV SV A4C 44.6 ml LV SV A2C 68.7 ml LV SV BP 57.3 ml LV CO A4C 2.8 L/min LV CO A2C 4.1 L/min LV CO BP 3.4 L/min HR A4C 61.75 BPM HR A2C 59.41 BPM LV EDV Index (BP) LA Volume LA Length A4C 5.0 cm LA Length A2C 4.9 cm LA Area A4C s 14.50 cm2 LA Area A2C s 15.77 cm2 LA Vol A4C A-L 35.47 mL LA Vol A2C A-L 43.20 mL LA Vol Biplane A-L 39.7 mL LA Vol/BSA A4C A-L LA Vol/BSA A2C A-L LA Vol/BSA BP A-L 20.8 mL/m2 LA Vol A4C MOD 33.4 mL LA Vol A2C MOD 40.2 mL LA Vol BP MOD 37.1 mL RA Volume RA Area A4C 9.3 cm2 RA ESV A4C (A-L) 18.9mL RA Vol/BSA A4C A-L RA Length A4C 3.8 cm RA ESV A4C (MOD) 17.7mL LV Diastology MV E' medial 0.062 (>0.07 m/s) MV E Vmax 0.61 (0.4-1.3 m/s) MV E/E' MED 9.85 (<14) MV A Vmax 0.75 (0.4-1.3 m/s) MV E' lateral 0.087 (>0.1 m/s) E/A Ratio 0.8 MV E/E' LAT 6.93 (<14) MV E' Average 0.075 m/s MV E/E'(average) 8.14 Aortic Valve AoV Vmax 1.12 m/s LVOT Vmax 1.04 m/s AoV Peak Grad 5.0 mmHg LVOT Peak Grad 4.4 mmHg AoV Area (Vmax) 2.75 cm2 LVOT VTI 0.258 m AoV VTI 0.284 m LVOT Mean Grad 2.6 mmHg AoV Mean Jatin. 0.83 m/s LVOT SV 76.31 mL AoV Mean Grad 3.1 mmHg LVOT Diam s 1.90 cm AoV Area (VTI) 2.69 cm2 AV Regurg Peak Gr. 5.04 mmHg Velocity Ratio 0.93 Mitral Valve MV DT 316 (160-240 msec) MV Vmax TIPS 0.62 m/s MV Mean Grad 0.7 (<2mmHg) MV VTI 0.243 m Pulmonary Valve PV Vmax 0.84 (0.5-1.5 m/s) RVOT Vmax 0.73 m/s PV Peak Grad 2.8 mmHg RVOT Peak Gr. 2.1 mmHg PV Mean Jatin 0.63 m/s RVOT VTI 0.175 m PV Mean Grad 1.8 mmHg RVOT Mean Gr. 1.1 mmHg Tricuspid Valve RA Pressure 3.00 mmHg TR Vmax 2.27 m/s TV S' 0.12 m/s TR Peak Grad 20.5 mmHg RVSP (TR) 23.6 mmHg
== END 2025-07-08 03:21 ==
LOC: DI 03:02
PROVIDERS: PCP Neuromusculoskeletal Medicine & OMM; Visit Provider Internal Medicine Cardiovascular Disease
DX: R06.02 Shortness of breath (principal); J84.9 Interstitial pulmonary disease, unspecified
CPT/HCPCS: 93306